=== PATIENT | male | born 1960 | race Native Hawaiian/Other Pacific Islander ===

== ENCOUNTER → 2018-10-30 08:25 | Outpatient (CLI) | payer BC | END | disposition home or self-care (01) | LOC: D.HCCARDIO 08:25 | PROVIDERS: ATTEND Internal Medicine Cardiovascular Disease | DX: I25.10 Atherosclerotic heart disease of native coronary artery without angina pectoris (principal); I10 Essential (primary) hypertension ==

== ENCOUNTER → 2018-11-12 14:22 | Outpatient (CLI) | payer BC ==
[~2018-11-12 14:22] MED LIST: ALBUTEROL SULF8.5 GM INH; BENICAR40 MG PO; BRILINTA90 MG PO; FENOFIBRATE160 MG PO; HCTZ25 MG PO; PREDNISONE50 MG PO; TOPROL XL100 MG PO
[2018-11-17 11:23] VITALS: BMI 30.1
== END | disposition home or self-care (01) ==
LOC: D.HCCARDIO 11-05 14:30
PROVIDERS: ATTEND Internal Medicine Cardiovascular Disease
DX: R06.02 Shortness of breath (principal)

== ENCOUNTER 2018-11-17 10:53 | Outpatient (CLI) | payer BC ==
[~2018-11-17] VITALS: Ht 177.8 cm; Wt 95.5 kg
--- NOTE | ~2018-11-17 | HEMODYNAMI ---
PATIENT:ANNE ENCARNACION JR MEDICAL RECORD: [id number] : 62 LOCATION:[facility] ADMISSION DATE: 11/17/18 Generatedon:11/17/201813:32 Patient name: ANNE ENCARNACION Patient #: [id number] SSN: D OB: 1960 Date of study: 11/17/2018 Page: Of Hemodynamic Procedure Report Patient Data Patient Demographics Procedure consent was obtained First Name: ANNE Gender: Male Last Name: ALYSHA Suffix: Patient #: [id number] : 1960 Age: 58 year(s) Accession #: Race: Other [id number] Additional ID: [id number] Contact details [address]: [address] [place] [address] State: [place] City: [place] Zip code: [address] Past Medical History Allergies Allergen Reaction Date Comments Reported Shellfish 11/17/2018 Admission Admission Data Admission Date: 11/17/2018 Admission Time: 10:53 Procedure Procedure Types Cath Procedure Diagnostic Procedure LHC LHC w/Coronaries PCI Procedure Coronary Stent Coronary Stent Initial Procedure Description Procedure Date Procedure Date: 11/17/2018 Procedure Start Time: 13:02 Procedure End Time: 13:28 Procedure Staff Name Function Alan Ambriz MD Performing Physician Jonathan Nelson RT Monitor Sheyla Weston RT Scrub Rebekah Toney RN Nurse Procedure Data Cath Procedure Fluoroscopy Diagnostic fluoroscopy Total fluoroscopy Time: 6.2 time: 6.2 min min Diagnostic fluoroscopy Total fluoroscopy dose: 840 dose: 840 mGy mGy Contrast Material Contrast Material Type Amount (ml) Isovue 300 111 Entry Location Entry Primary Successful Side Size Upsize Upsize Entry Closure Succes sful Closure Location (Fr) 1 (Fr) 2 (Fr) Remarks Device Remarks Femoral Right 5 Fr 6 Fr Exoseal artery Short Diagnostic catheters Device Type Used For End Catheter Placement MULTIPACK JL 4.0 5Fr Left Coronary catheter Angiography MULTIPACK 3DRC 5Fr Right Coronary catheter Angiography MULTIPACK Pigtail 5 Fr LV Angiography catheter Procedure Complications No complications Procedure Medications Medication Administration Route Dosage 0.9% NaCl I.V. 100 ml/hr Oxygen etCO2 Nasal cannula 2 l/min Lidocaine 2% added to field 20 Heparin Flush Bag added to field 2 bags (1000units/500ml NS) Versed I.V. 2 mg Fentanyl I.V. 50 mcg Versed I.V. 2 mg Fentanyl I.V. 50 mcg Heparin Bolus I.V. 9500 units Brilinta P.O. 180 mg Hemodynamics Rest Heart Rate: 86 (bpm) Pressure Samples Time Site Value (mmHg) Purpose Heart Use Rate(bpm) 13:10 LV 159/38,58 EDP 86 13:10 LV 148/7,45 Snapshot 122 Gradients Valve Time Site Site Mean SEP/DFP Peak To Heart Use 1 2 (mmHg) (sec/min) Peak Rate (mmHg) (bpm) Aortic 13:11 LV AO 87 Snapshots Pre Cath Intra NCS Post Cath Vital Signs Time Heart Resp SPO2 etCO2 NIBP (mmHg) Rhythm Pain Sedation Rate (ipm) (%) (mmHg) Status Level (bpm) 12:48:16 79 16 100 30.1 152/102(129) NSR 0 (11) 10(A) , No pain 12:52:38 89 17 97 29 129/98(116) NSR 0 (11) 10(A) , No pain 12:56:50 91 13 97 15 131/92(114) NSR 0 (11) 10(A) , No pain 13:01:04 88 16 99 33.8 138/104(133) NSR 0 (11) 10(A) , No pain 13:05:22 88 17 98 14.2 138/89(114) NSR 0 (11) 9(A) , No pain 13:09:38 88 19 97 18.8 154/104(121) NSR 0 (11) 9(A) , No pain 13:13:58 94 16 96 12.8 160/114(139) NSR 0 (11) 9(A) , No pain 13:18:24 99 14 96 36 148/105(127) NSR 0 (11) 9(A) , No pain 13:22:44 102 15 96 44.3 146/106(131) NSR 0 (11) 9(A) , No pain 13:26:58 103 15 96 47.4 152/104(129) NSR 0 (11) 10(A) , No pain Medications Time Medication Route Dose Verified Delivered Reason Notes Effectiveness by by 12:47:08 0.9% NaCl I.V. 100 Alan Rebekah used for ml/hr Pb Toney carpenter rough 12:47:14 Oxygen etCO2 2 Alan Rebekah used for Nasal l/min Pb Toney procedure cannula RN 12:47:19 Lidocaine 2% added 20ml Alan Alan for local to vial Pb Ambriz MD anesthetic field 12:47:24 Heparin Flush added 2 Alan Alan used for Bag to bags Pb Ambriz MD procedure (1000units/500ml field NS) 12:56:59 Versed I.V. 2 mg Alan Rebekah for sedation Pb Toney RN 12:57:05 Fentanyl I.V. 50 Alan Rebekah for sedation mcg Pb Toney RN 13:04:36 Versed I.V. 2 mg Alan Rebekah for sedation Pb Toney RN 13:04:40 Fentanyl I.V. 50 Alan Rebekah for sedation mcg Pb Toney RN 13:15:43 Heparin Bolus I.V. 9500 Alan Rebekah for verif ied units Pb Toney anticoagulation with Dr. FREDO Ambriz 13:29:41 Brilinta P.O. 180 Alan Rebekah for mg Pb Toney antiplatelet RN therapy Procedure Log Time Note 12:24:30 Informed consent obtained and on chart 12:24:35 Diagnostic Cath Status : Elective 12:38:56 Sheyla Weston RT(R) sent for patient. Start room use. 12:38:57 Time tracking: Regular hours (M-F 7:00 - 5:00) 12:39:01 Plan of Care:Hemodynamics will remain stable., Cardiac rhythm will remain stable., Comfort level will be maintained., Respiratory function will remain adequate., Patient/ family verbilizes understanding of procedure., Procedure tolerated without complication., Recovers from procedure without complications.. 12:41:10 Patient received from Pre/Post Procedure Room to CCL 1 Alert and oriented. Tansferred to table in Supine position. 12:41:12 Warm blankets applied, and deepa hugger turned on for patient comfort. 12:41:12 Correct patient and procedure confirmed by team. 12:41:13 ECG and BP/O2 sat monitors applied to patient. 12:46:58 Vital chart was started 12:47:08 0.9% NaCl 100 ml/hr I.V. was administered by Rebekah Toney RN; used for procedure; 12:47:14 Oxygen 2 l/min etCO2 Nasal cannula was administered by Rebekah Toney RN; used for procedure; 12:47:19 Lidocaine 2% 20ml vial added to field was administered by Alan Ambriz MD; for local anesthetic; 12:47:24 Heparin Flush Bag (1000units/500ml NS) 2 bags added to field was administered by Alan Ambriz MD; used for procedure; 12:53:27 ECG and BP/O2 sat monitors applied to patient. 12:53:28 Baseline sample Acquired. 12:53:31 Rhythm: sinus rhythm 12:53:32 Full Disclosure recording started 12:53:48 H&P Date Dictated: 10/30/2018 Within 30 days and on chart., H&P Addendum completed by physician on day of procedure. (MUST COMPLETE FOR ALL OUTPATIENTS). 12:53:49 Pre-procedure instructions explained to patient. 12:53:50 Pre-op teaching completed and patient verbalized understanding. 12:53:55 Family in patients room. 12:53:57 Patient NPO since Midnight. 12:54:48 Patient allergic to Shellfish 12:54:51 Is the patient allergic to Iodine/contrast media? No. 12:54:56 Is patient on blood thinner?Yes 12:55:01 Patient diabetic? No. 12:55:04 If diabetic: On Metformin? No 12:55:05 ----Pre-sedation anethsthesia assessment.---- 12:55:09 Previous problem with sedation/anesthesia? No ? 12:55:11 Snore? Yes 12:55:13 Sleep apnea? No 12:55:15 Deviated septum? No 12:55:17 Opens mouth fully? Yes 12:55:18 Sticks out tongue? Yes 12:55:23 Airway obstruction? No ? 12:55:29 Dentures? No ? 12:55:35 Pre procedure: right dorsailis pedis pulse 1+ Palpable, but thready & weak; easily obliterated 12:55:38 Patient pain scale 0/10 ?. 12:55:42 IV patent on arrival in left antecubital with 0.9% NaCl at 10ml/hr. 12:55:45 Lab results completed and on chart. 12:55:49 Right groin area was prepped with chlora-prep and draped in sterile fashion 12:55:50 Alarms reviewed by R. N. 12:55:50 Sharps counted by scrub and verified by R.N. 12:55:51 Physician arrived 12:55:52 --------ALL STOP TIME OUT------ 12:55:52 Final Timeout: patient, procedure, and site verified with staff and physician. All members of the team are in agreement. 12:55:56 Right groin site verified by team. 12:55:59 Maximum allowable Isovue 300 dose 300ml. Physician notified. (300ml for normal creatinines. For patients with creatinine of 1.7 or higher multiply weight(kg) x 5 divided by creatinine.) 12:56:02 Fire Safety Assessment: A--An alcohol-based skin anteseptic being used preoperatively., C--Open oxygen or nitrous oxide is being used., D--An ESU, laser, or fiber-optic light is being used. 12:56:05 Physical assessment completed. ASA score P 2 - A patient with mild systemic disease as per Alan Ambriz MD. 12:56:08 Sedation plan: IV Moderate Sedation Medication:Versed, Fentanyl 12:56:59 Versed 2 mg I.V. was administered by Rebekah Toney RN; for sedation; 12:57:05 Fentanyl 50 mcg I.V. was administered by Rebekah Toney RN; for sedation; 12:58:53 Use device set Femoral Dx 12:58:54 ACIST Syringe (06647) opened to sterile field. 12:58:54 Bag Decanter (2002S) opened to sterile field. 12:58:54 Medline Cath Pack ([id number]) opened to sterile field. 12:58:55 DIAGNOSTIC WIRE .035 260cm J wire (718672) opened to sterile field. 12:58:57 ACIST Hand Control (02005) opened to sterile field. 12:58:57 ACIST Manifold (02434) opened to sterile field. 12:58:57 DIAGNOSTIC Multipack 5Fr catheter set (FT0467) opened to sterile field. 12:58:59 Tegaderm 4 x 4 (1626W) opened to sterile field. 12:59:01 SHEATH 5FR Sparta (XZF200) opened to sterile field. 13:02:10 Procedure started. 13:02:23 Local anesthetic to right femoral artery with Lidocaine 2% by Alan Ambriz MD.INITIAL ACCESS ONLY 13:02:38 A 5 Fr sheath was inserted into the Right Femoral artery 13:02:57 Zero performed for pressure channel P1 13:04:26 A MULTIPACK JL 4.0 5Fr catheter was advanced over the wire and used for Left Coronary Angiography. 13:04:30 LCA angiography performed. 13:04:36 Versed 2 mg I.V. was administered by Rebekah Toney RN; for sedation; 13:04:40 Fentanyl 50 mcg I.V. was administered by Rebekah Toney RN; for sedation; 13:05:33 Catheter exchanged over wire. 13:06:50 A MULTIPACK 3DRC 5Fr catheter was advanced over the wire and used for Right Coronary Angiography. 13:06:54 RCA angiography performed. 13:09:07 Catheter exchanged over wire. 13:09:14 A MULTIPACK Pigtail 5 Fr catheter was advanced over the wire and used for LV Angiography. 13:10:29 LV gram done using STRINGER 13:10:38 EF : 35 % 13:11:01 Catheter exchanged over wire. 13:13:05 Sheath upsized to a 6 Fr Short. 13:14:14 GUIDE 6FR XBLAD 3.5 catheter ([id number]) opened to sterile field. 13:14:15 TUBING High Pressure Extension Tubing (Pb) (NY0872I) opened to sterile field. 13:14:16 BMW 300cm Bridport 2 J wire ([id number]) opened to sterile field. 13:14:16 SHEATH 6FR Sparta (BMQ824) opened to sterile field. 13:14:17 INFLATOR Merit BasixCompak (KC9587) opened to sterile field. 13:14:27 6 Fr XBLAD 3.5 guide catheter was inserted over the wire 13:14:34 BMW wire advanced. 13:15:43 Heparin Bolus 9500 units I.V. was administered by Rebekah Toney RN; for anticoagulation; verified with Dr. Ambriz 13:19:10 Inflate balloon Inflation number: 1 A EMERGE OTW 2.5 x 20 balloon ([id number]) was prepped and advanced across the Mid LAD, then inflated to 16 VALDEMAR for 0:10 (min:sec). 13:20:00 Inflation number: 2 The EMERGE OTW 2.5 x 20 balloon ([id number]) was reinflated across the Mid LAD, to 16 VALDEMAR for 0:12 (min:sec). 13::47 Balloon removed over the wire. 13:25:17 Place stent Inflation Number: 3 A BORIS OTW 3.0 x 26 stent ([id number]) was prepped and advanced across the Mid LAD. The stent was deployed at 15 VALDEMAR for 0:38 (min:sec). 13:26:28 EXOSEAL 6Fr (EX600) opened to sterile field. 13:26:38 Stent catheter was removed intact over wire. 13:26:38 Wire removed. 13:26:39 Guide catheter removed. 13::46 Contrast amount:Isovue 300 111ml. 13:26:52 Sheath removed intact; hemostasis achieved with Exoseal to the Right Femoral artery. 13:26:54 Procedure ended.(Physican Out) 13:27:09 Fluoroscopy time 06.20 minutes. 13:27:15 Fluoroscopy dose: 840 mGy 13:27:15 Flurop Dose total: 840 13:27:19 Sharps counted by scrub and verified by R.N. 13:27:21 Insertion/operative site no bleeding no hematoma. 13:27:27 Post-op/insertion site Right Femoral artery dressed using a 4 x 4 and Tegaderm. 13:27:31 Post right femoral artery:stable 13:27:33 Post Procedure Pulses reassessed and unchanged 13:27:37 Post procedure: right dorsailis pedis pulse 2+ Normal; easily identifiable; not easily obliterated. 13:27:41 Post-procedure physical assessment completed. ASA score P 2 - A patient with mild systemic disease as per Alan Ambriz MD. 13:27:44 Post procedure rhythm: sinus rhythm 13:27:46 Post procedure instruction explained to patient.Patient verbalizes understanding. 13::47 Procedure and supply charges have been captured, reviewed, submitted and are correct. 13::53 Procedure Complication : No complications 13::57 Vital chart was stopped 13:27:57 See physician's report for complete and final results. 13:27:59 Report given to Pre/Post Procedure Room. 13:28:06 Patient transfered to Pre/Post Procedure Room with Bed. 13:28:09 Procedure ended. 13:28:09 Full Disclosure recording stopped 13:28:37 ACC-PCI Only Patient was given prescriptions, or instructed by Alan Ambriz MD to start/continue the following medications upon discharge: Brilinta 13:28:39 End room use (Document Last) 13:28:54 Procedure type changed to Cath procedure, Diagnostic procedure, LHC, LHC w/Coronaries, PCI procedure, Coronary Stent, Coronary Stent Initial 13:29:41 Brilinta 180 mg P.O. was administered by Rebekah Toney RN; for antiplatelet therapy; Intervention Summary Intervention Notes Time ActionType Lesion and Equipment Action# Pressure Duration Attributes Used 13:19:10 Inflate Mid LAD EMERGE OTW 1 16 00:10 balloon 2.5 x 20 balloon ([id number]) 13:20:00 Reinflate Mid LAD EMERGE OTW 2 16 00:12 balloon 2.5 x 20 balloon ([id number]) 13:25:17 Place stent Mid LAD BORIS OTW 3.0 3 15 00:38 x 26 stent ([id number]) Device Usage Item Name Manufacture Quantity Catalog Number Hospital Part Current M inimal Lot# / Charge Number Stock Stock Serial# Code ACIST Syringe Acist 1 17165 425995 782235 979666 2 0 (98275) Medical Systems Inc Bag Decanter Microtek 1 236811 58714 915408 5 () Medical Inc. Medline Cath Medline 1 [id number] 213266 67807 921126 5 Pack ([id number]) DIAGNOSTIC St Augusto 1 049286 706639 863027 942058 3 0 WIRE .035 260cm J wire (968720) ACIST Hand Acist 1 61417 356800 781457 502983 5 Control Medical (62167) Systems Inc ACIST Acist 1 33085 880562 581943 941225 5 Manifold Medical (13907) Systems Inc DIAGNOSTIC Cardinal 1 [id number] 178957 20364 726426 3 0 Multipack 5Fr Health catheter set (IZ5923) Tegaderm 4 x 3M 1 1626W 989401 114723 480399 5 4 (1626W) SHEATH 5FR Terumo 1 QWR835 824234 050352 425307 5 Sparta (JJS561) MULTIPACK JL Cardinal 1 988066 5 4.0 5Fr Health catheter MULTIPACK Cardinal 1 995021 5 3DRC 5Fr Health catheter MULTIPACK Cardinal 1 961572 5 Pigtail 5 Fr Health catheter GUIDE 6FR Cardinal 1 [id number] 067168 843478 390951 1 0 XBLAD 3.5 Health catheter ([id number]) TUBING High Merit 1 [id number] 622426 92504 487813 1 0 Pressure Medical Extension Tubing (Ambriz) (PS6774S) BMW 300cm Recinos 1 [id number] 198177 159741 444836 5 Bridport 2 J Vascular wire (2452945T) SHEATH 6FR Terumo 1 QDL517 903727 474090 225440 4 0 Sparta (ZFF622) INFLATOR Merit 1 JE4909 444178 547926 175870 1 5 [facility] Medical BasixCompak (FL0299) EMERGE OTW Crandall 1 [id number] 331035 045278 828034 5 [id number] 2.5 x 20 Scientific balloon ([id number]) BORIS OTW 3.0 Medtronic 1 [id number] 286490 7737829 499419 5 [id number] x 26 stent ([id number]) EXOSEAL 6Fr Cardinal 1 EX600 139634 050885 728125 1 0 (EX600) Health Signature Audit Morton Stage Time Signature Unsigned Intra-Procedure 11/17/2018 Jonathan Nelson RT(R) 1:32:29 PM Signatures Monitor : Jonathan Nelson RT Signature : Date : Time : [facility] [address] [place] [address]
[2018-11-17] MEDS ORDERED: TOPROL XL100 MG PO (11:05)
[2018-11-17] MEDS ORDERED: PREDNISONE50 MG PO (11:05)
[2018-11-17] MEDS ORDERED: FENOFIBRATE160 MG PO (11:05)
[2018-11-17] MEDS ORDERED: HCTZ25 MG PO (11:06)
[2018-11-17] MEDS ORDERED: ALBUTEROL SULF8.5 GM INH (11:06)
[2018-11-17] MEDS ORDERED: BENICAR40 MG PO (11:06)
[2018-11-17 11:23] VITALS: BP 143/98; Ht 177.8 cm; Wt 95.5 kg
[2018-11-17 11:25] LABS: BASOPHILS 0.1 % (0-2); EOSINOPHILS 0.1 % (0-7); HEMATOCRIT 44.7 % (42.0-54.0); HEMOGLOBIN 15.4 g/dL (13.5-17.5); IMMATURE GRANULOCYTES 0.3 % (0-5); LYMPHOCYTES 12.7 % (15-50); MCH 30.3 pg (26.0-34.0); MCHC 34.5 g/dL (31.0-37.0); MEAN PLATELET VOLUME 11.4 fL (7.4-10.4); MONOCYTES 2.6 % (2-11); NEUTROPHILS 84.2 % (40-80); PLATELET COUNT 228 10x3/uL (130-400); RBC 5.08 10x6/uL (4.20-6.10); RDW 13.9 % (11.5-14.5); WBC 7.7 10x3/uL (4.8-10.8)
[2018-11-17 11:37] LABS: ANION GAP 13.9 mmol/L (8-16); CALCIUM 9.5 mg/dL (8.5-10.1); CARBON DIOXIDE 26.8 mmol/L (21.0-32.0); CREATININE - SERUM 1.3 mg/dL (0.6-1.3); POTASSIUM - SERUM 4.7 mmol/L (3.5-5.1)
[2018-11-17] MEDS ORDERED: BRILINTA90 MG PO (13:48)
--- NOTE | 2018-11-17 14:00 | NUR ---
PATIENT INTERMITTENTLY RESTING, VSS ON 2L NC. RIGHT GROIN DRESSING IS CDI, NO S/S OF BLEEDING OR HEMATOMA. NO C/O PAIN, NUMBNESS, OR TINGLING. PATIENT EATING JELLO AND DRINKING SODA PER REQUEST, NO N/V.
--- NOTE | 2018-11-17 14:30 | NUR ---
PATIENT AWAKE, RESTING INTERMITTENTLY. VSS ON 2L NC. RIGHT GROIN DRESSING IS CDI, NO S/S OF BLEEDING OR HEMATOMA. NO C/O PAIN, NUMBNESS, OR TINGLING. 2+ PEDAL PULSES.
--- NOTE | 2018-11-17 15:00 | NUR ---
PATIENT RESTING, VSS ON 2L NC. RIGHT GROIN DRESSING IS CDI, NO S/S OF BLEEDING OR HEMATOMA. NO C/O PAIN, NUMBNESS, OR TINGLING.
--- NOTE | 2018-11-17 15:30 | NUR ---
PATIENT RESTING, VSS ON 2L NC. RIGHT GROIN DRESSING IS CDI, NO S/S OF BLEEDING OR HEMATOMA. NO C/O PAIN, NUMBNESS, OR TINGLING. FAMILY AT BEDSIDE.
--- NOTE | 2018-11-17 16:00 | NUR ---
PATIENT RESTING, VSS ON 1L NC. RIGHT GROIN DRESSING IS CDI, NO S/S OF BLEEDING OR HEMATOMA. FAMILY AT BEDSIDE.
--- NOTE | 2018-11-17 16:30 | NUR ---
HEAD OF BED ELEVATED TO 30 DEGREES, RIGHT GROIN DRESSING IS CDI, NO S/S OF BLEEDING OR HEMATOMA. NO C/O PAIN, NUMBNESS, OR TINGLING. VSS ON 1L NC.
--- NOTE | 2018-11-17 17:00 | NUR ---
IV REMOVED. EDUCATION REGARDING DISCHARGE INSTRUCTIONS AND MEDICATION COMPLIANCE GIVEN TO PATIENT AND SIGNIFICANT OTHER, PATIENT VOICED UNDERSTANDING. VSS ON ROOM AIR. RIGHT GROIN DRESSING IS CDI, NO S/S OF BLEEDING OR HEMATOMA. NO C/O PAIN, NUMBNESS, OR TINGLING. NO N/V.
--- NOTE | 2018-11-17 17:30 | NUR ---
PATIENT VOIDED WITHOUT DIFFICULTY. PATIENT TRANSPORTED VIA WHEELCHAIR TO CAR WITH SIGNIFICANT OTHER DRIVING, ALL BELONGINGS WITH PATIENT.
== END 2018-11-17 17:30 ==
LOC: D.CATH 10:53
PROVIDERS: ATTEND Internal Medicine Cardiovascular Disease
DX: I25.119 Atherosclerotic heart disease of native coronary artery with unspecified angina pectoris (principal); Z01.812 Encounter for preprocedural laboratory examination
CPT/HCPCS: 93458; C9600

== ENCOUNTER 2018-11-20 06:57 | Inpatient (IN) | payer BC ==
[~2018-11-20] VITALS: Ht 177.8 cm; Wt 95.9 kg
[2018-11-20] VITALS (17 sets, daily range): BP systolic 114–160; BP diastolic 76–100; Ht 177.8 cm; Wt 95.9 kg
--- NOTE | ~2018-11-20 | DS ---
PATIENT:ANNE KEYES JR :62 MEDICAL RECORD: [id number] DISCHARGE SUMMARY ADMISSION DATE: 11/20/18 DISCHARGE DATE: 11/22/18 DISCHARGE DIAGNOSES: 1. Acute anterior myocardial infarction. 2. PTCA and stent of LAD. 3. Hypertension. 4. Hyperlipidemia. HOSPITAL COURSE: Mr. Keyes presents with acute chest pain, found to have acute clot in the preexisting stents. Underwent restenting of the LAD with BORIS 3 flow. Discharged home with no change in the medications as he is already on a beta-mikaela, cholesterol medication, aspirin, and Brilinta. He will follow up with Dr. Ambriz in 1 month. TRANSINT:[id number] Voice Confirmation ID: [id number] DOCUMENT ID: [id number] SYLVAIN LUEVANO MD CC: [id number] DICTATION DATE: 11/22/1859 GENERAL CAR SUPERVISOR YARD: 11/23/18 0539 DIS IN 11/22/18 [facility] [address] [place] [address]
--- NOTE | ~2018-11-20 | HEMODYNAMI ---
PATIENT:ANNE ENCARNACION JR MEDICAL RECORD: [id number] : 62 LOCATION:[facility] ADMISSION DATE: 11/20/18 Generatedon:11/20/20188:03 Patient name: ANNE ENCARNACION Patient #: [id number] SSN: D OB: 1960 Date of study: 11/20/2018 Page: Of Hemodynamic Procedure Report Patient Data Patient Demographics Procedure consent was obtained First Name: ANNE Gender: Male Last Name: ALYSHA Suffix: Patient #: [id number] : 1960 Age: 58 year(s) Accession #: Race: Other [id number] Additional ID: [id number] Contact details [address]: [address] [place] [address] State: [place] City: [place] Zip code: [address] Past Medical History Allergies Allergen Reaction Date Comments Reported Shellfish 11/17/2018 Admission Admission Data Admission Date: 11/20/2018 Admission Time: 6:57 Procedure Procedure Types Cath Procedure Diagnostic Procedure LHC LH w/Coronaries Sedation Charges Moderate Sedation up to 15 minutes PCI Procedure AMI/SVG/COMPUTER GRAPHICS ILLUSTRATOR PTCA or Stent AMI-BMS/TRISTAN Initial Procedure Description Procedure Date Procedure Date: 11/20/2018 Procedure Start Time: 7:33 Procedure End Time: 7:58 Procedure Staff Name Function Alan Ambriz MD Performing Physician Raymundo Klein RT Monitor Sheyla Weston RT Scrub Rebekah Toney RN Nurse Procedure Data Cath Procedure Fluoroscopy Diagnostic fluoroscopy Total fluoroscopy Time: 5.4 time: 5.4 min min Diagnostic fluoroscopy Total fluoroscopy dose: 546 dose: 546 mGy mGy Contrast Material Contrast Material Type Amount (ml) Isovue 300 76 Entry Location Entry Primary Successful Side Size Upsize Upsize Entry Closure Succes sful Closure Location (Fr) 1 (Fr) 2 (Fr) Remarks Device Remarks Femoral Right 6 Fr Exoseal artery Short Estimated blood loss: 10 ml Diagnostic catheters Device Type Used For End Catheter Placement MULTIPACK JL 4.0 5Fr Procedure catheter MULTIPACK Pigtail 5 Fr Procedure catheter Procedure Complications No complications Procedure Medications Medication Administration Route Dosage Benadryl I.V. 50 mg Oxygen etCO2 Nasal cannula 2 l/min Lidocaine 2% added to field 20 Heparin Flush Bag added to field 2 bags (1000units/500ml NS) 0.9% NaCl I.V. 100 ml/hr Versed I.V. 2 mg Fentanyl I.V. 50 mcg Versed I.V. 1 mg Fentanyl I.V. 25 mcg Heparin Bolus I.V. 9500 units Integrilin (Bolus I.V. 8.5 ml 2mg/ml) Integrilin Drip I.V. drip 7.5 ml/hr (75mg/100ml) Brilinta P.O. 90 mg Hemodynamics Rest Heart Rate: 96 (bpm) Pressure Samples Time Site Value (mmHg) Purpose Heart Use Rate(bpm) 7:52 LV 161/39,54 Snapshot 93 Gradients Valve Time Site Site Mean SEP/DFP Peak To Heart Use 1 2 (mmHg) (sec/min) Peak Rate (mmHg) (bpm) Aortic 7:52 LV AO 87 Snapshots Pre Cath Intra NCS Post Cath Vital Signs Time Heart Resp SPO2 etCO2 NIBP (mmHg) Rhythm Pain Sedation Rate (ipm) (%) (mmHg) Status Level (bpm) 7:22:42 86 15 98 38.4 127/90(104) NSR w/ ST 8 (11) , 10(A) Elevation Utterly horrible 7:27:00 89 15 97 29.4 146/104(130) NSR w/ ST 8 (11) , 10(A) Elevation Utterly horrible 7:31:26 103 15 98 22.6 158/101(134) NSR w/ ST 8 (11) , 10(A) Elevation Utterly horrible 7:37:00 108 17 98 21.8 148/96(142) NSR w/ ST 0 (11) , 9(A) Elevation No pain 7:41:14 109 19 97 35.4 134/98(129) NSR w/ ST 0 (11) , 9(A) Elevation No pain 7:45:38 104 16 96 40.7 139/89(108) ST 0 (11) , 9(A) No pain 7:50:00 103 20 100 41.5 139/119(131) ST 0 (11) , 9(A) No pain 7:54:26 106 16 100 45.2 150/85(106) ST 0 (11) , 10(A) No pain 7:58:47 99 36 100 14.3 133/93(114) NSR 0 (11) , 10(A) No pain Medications Time Medication Route Dose Verified Delivered Reason Notes Effectiveness by by 7:21:23 Benadryl I.V. 50 mg Alan Alan used for Pb Ambriz MD procedure 7:21:36 Oxygen etCO2 2 Alan Rebekah used for Nasal l/min Pb Toney procedure cannula RN 7:21:44 Lidocaine 2% added 20ml Alan Alan for local to vial Pb Ambriz MD anesthetic field 7:21:52 Heparin Flush added 2 Alan Alan used for Bag to bags Pb Ambriz MD procedure (1000units/500ml field NS) 7:22:00 0.9% NaCl I.V. 100 Alan Alan Per physician ml/hr Pb Ambriz MD 7:28:59 Versed I.V. 2 mg Alan Rebekah for sedation Pb Toney RN 7:29:03 Fentanyl I.V. 50 Alan Rebekah for sedation mcg Pb Toney RN 7:35:09 Versed I.V. 1 mg Alan Rebekah for sedation Pb Toney RN 7:35:13 Heparin Bolus I.V. 9500 Alan Rebekah for verifi ed units Pb Toney anticoagulation with DrJose Ambriz 7:35:13 Fentanyl I.V. 25 Alan Rebekah for sedation mcg Pb Toney RN 7:50:42 Integrilin I.V. 8.5 Alan Rebekah for wasted (Bolus 2mg/ml) ml Pb Toney antiplatelet 1.5mL RN therapy 7:55:04 Integrilin Drip I.V. 7.5 Alan Rebekah for (75mg/100ml) drip ml/hr Pb Toney antiplatelet RN therapy 7:56:31 Brilinta P.O. 90 mg Alan Rebekah for Pb Toney antiplatelet RN therapy Procedure Log Time Note 7:19:08 Diagnostic Cath Status : Emergency 7:19:22 Raymundo Klein RT(R) sent for patient. Start room use. 7:19:23 Time tracking: Regular hours (M-F 7:00 - 5:00) 7:19:27 Plan of Care:Hemodynamics will remain stable., Cardiac rhythm will remain stable., Comfort level will be maintained., Respiratory function will remain adequate., Patient/ family verbilizes understanding of procedure., Procedure tolerated without complication., Recovers from procedure without complications.. 7:19:32 Patient received from ED to CCL 1 Alert and oriented. Tansferred to table in Supine position. 7:19:34 Warm blankets applied, and deepa hugger turned on for patient comfort. 7:19:34 Correct patient and procedure confirmed by team. 7:19:35 Signed procedure consent form obtained from patient. 7:19:36 ECG and BP/O2 sat monitors applied to patient. 7:21:23 Benadryl 50 mg I.V. was administered by Alan Ambriz MD; used for procedure; 7:21:30 Vital chart was started 7:21:36 Oxygen 2 l/min etCO2 Nasal cannula was administered by Rebekah Toney RN; used for procedure; 7:21:44 Lidocaine 2% 20ml vial added to field was administered by Alan Ambriz MD; for local anesthetic; 7:21:52 Heparin Flush Bag (1000units/500ml NS) 2 bags added to field was administered by Alan Ambriz MD; used for procedure; 7:21:56 Full Disclosure recording started 7:22:00 0.9% NaCl 100 ml/hr I.V. was administered by Alan Ambriz MD; Per physician; 7:22:01 Rhythm: sinus rhythm , w/ ST elevation 7:22:14 H&P Date Dictated: 11/20/2018 ER History on chart.. 7::22 H&P Date Dictated: 11/20/2018 ER History on chart., New H&P dictated by physician.. 7:22:23 Pre-procedure instructions explained to patient. 7:22:24 Pre-op teaching completed and patient verbalized understanding. 7:22:26 Family in waiting room. 7:22:28 Patient NPO since Midnight. 7:23:01 Is the patient allergic to Iodine/contrast media? No. 7:23:04 Was the patient premedicated? No 7:23:10 Is patient on blood thinner?Yes 7:23:14 ACC The patient was administered the following blood thiners within the last 24 hours: ACCBrilinta 7:23:16 Patient diabetic? No. 7:23:21 Previous problem with sedation/anesthesia? No ? 7:23:23 Snore? Yes 7:23:24 Sleep apnea? Yes 7:23:25 Deviated septum? No 7:23:36 Opens mouth fully? Yes 7:23:36 Sticks out tongue? Yes 7:23:38 Airway obstruction? No ? 7:23:41 Dentures? No ? 7:23:45 Pre procedure: left dorsailis pedis pulse 2+ Normal; easily identifiable; not easily obliterated 7:23:53 Patient pain scale 0/10 ?. 7:24:00 IV patent on arrival in left antecubital with 0.9% NaCl at [facility]. 7:24:02 Lab results completed and on chart. 7:24:05 Left groin area was prepped with chlora-prep and draped in sterile fashion 7:24:06 Alarms reviewed by R. N. 7:24:07 Sharps counted by scrub and verified by R.N. 7:24:18 Use device set Femoral Dx 7:24:22 SHEATH 6FR [place] ([id number]) opened to sterile field. 7:24:25 ACIST Syringe (57125) opened to sterile field. 7:24:25 Bag Decanter (2002S) opened to sterile field. 7:24:26 Medline Cath Pack ([id number]) opened to sterile field. 7:24:27 DIAGNOSTIC WIRE .035 260cm J wire (366831) opened to sterile field. 7:24:28 ACIST Hand Control (68424) opened to sterile field. 7:24:28 ACIST Manifold (11255) opened to sterile field. 7:24:29 DIAGNOSTIC Multipack 5Fr catheter set (MW6786) opened to sterile field. 7:24:29 Tegaderm 4 x 4 (1626W) opened to sterile field. 7:24:31 TUBING High Pressure Extension Tubing (Ambriz) ([id number]) opened to sterile field. 7:24:32 INFLATOR Merit BasixCompak (XC0162) opened to sterile field. 7:24:35 BMW 300cm [place] 2 J wire ([id number]) opened to sterile field. 7:25:15 Physician arrived 7::15 --------ALL STOP TIME OUT------ 7::15 Final Timeout: patient, procedure, and site verified with staff and physician. All members of the team are in agreement. 7:25:16 Left groin site verified by team. 7:25:19 Maximum allowable Isovue 300 dose 300ml. Physician notified. (300ml for normal creatinines. For patients with creatinine of 1.7 or higher multiply weight(kg) x 5 divided by creatinine.) 7:25:24 Fire Safety Assessment: A--An alcohol-based skin anteseptic being used preoperatively., C--Open oxygen or nitrous oxide is being used., D--An ESU, laser, or fiber-optic light is being used. 7:25:27 Physical assessment completed. ASA score P 3 - A patient with severe systemic disease as per Alan Ambriz MD. 7:25:30 Sedation plan: IV Moderate Sedation Medication:Versed, Fentanyl 7:26:45 Baseline sample Acquired. 7::53 Baseline sample Acquired. 7:28:59 Versed 2 mg I.V. was administered by Rebekah Toney RN; for sedation; 7:29:03 Fentanyl 50 mcg I.V. was administered by Rebekah Toney RN; for sedation; 7:32:20 Zero performed for pressure channel P1 7:32:24 Zero performed for pressure channel P1 7:32:26 Zero performed for pressure channel P1 7:32:28 Zero performed for pressure channel P1 7:32:49 Zero performed for pressure channel P1 7:32:51 Zero performed for pressure channel P1 7:32:54 Zero performed for pressure channel P1 7:32:57 Zero performed for pressure channel P1 7:33:00 Zero performed for pressure channel P1 7:33:03 Zero performed for pressure channel P1 7:33:22 Procedure started. 7:33:25 Local anesthetic to left femerol artery with Lidocaine 2% by Alan Ambriz MD.INITIAL ACCESS ONLY 7:33:33 A 6 Fr Short sheath was inserted into the Right Femoral artery 7:33:40 A MULTIPACK JL 4.0 5Fr catheter was advanced over the wire and used for Procedure. 7:33:56 Zero performed for pressure channel P1 7:33:59 Zero performed for pressure channel P1 7:34:01 Zero performed for pressure channel P1 7:34:29 Zero performed for pressure channel P1 7:34:32 Zero performed for pressure channel P1 7:35:01 LCA angiography performed. 7:35:04 Catheter exchanged over wire. 7:35:09 Versed 1 mg I.V. was administered by Rebekah Toney RN; for sedation; 7:35:12 GUIDE 6FR XBLAD 3.5 catheter ([id number]) opened to sterile field. 7:35:13 Heparin Bolus 9500 units I.V. was administered by Rebekah Toney RN; for anticoagulation; verified with Dr. Ambriz 7:35:13 Fentanyl 25 mcg I.V. was administered by Rebekah Toney RN; for sedation; 7:35:21 6 Fr xblad 3.5 guide catheter was inserted over the wire 7:36:41 BMW wire advanced. 7:38:41 Wire advanced across lesion. 7:40:23 Inflate balloon Inflation number: 1 A EMERGE OTW 2.5 x 20 balloon ([id number]) was prepped and advanced across the Prox LAD, then inflated to 16 VALDEMAR for 0:10 (min:sec). 7:42:23 Inflation number: 2 The EMERGE OTW 2.5 x 20 balloon ([id number]) was reinflated across the Prox LAD, to 10 VALDEMAR for 0:10 (min:sec). 7:46:20 Balloon removed over the wire. 7:47:26 Place stent Inflation Number: 3 A Mocapaytronic Integrity 2.75 X 12 stent was prepped and advanced across the Prox LAD. The stent was deployed at 12 VALDEMAR for 0:10 (min:sec). 7:48:00 Inflation number: 4 The stent balloon was then re-inflated across the Prox LAD to 14 VALDEMAR for 0:10 (min:sec). 7:50:03 Stent catheter was removed intact over wire. 7:50:03 Wire removed. 7:50:04 Guide catheter removed. 7:50:12 A MULTIPACK Pigtail 5 Fr catheter was advanced over the wire and used for Procedure. 7:50:42 Integrilin (Bolus 2mg/ml) 8.5 ml I.V. was administered by Rebekah Toney RN; for antiplatelet therapy; wasted 1.5mL 7:52:15 LV gram done using STRINGER 7:52:18 Injector settings: Ml/sec: 10, Volume: 20, 7:52:19 LV hemodynamics recorded. 7:52:29 EF : 45 % 7:53:48 Catheter removed. 7:53:56 Sheath removed intact; hemostasis achieved with Exoseal to the Right Femoral artery. 7:53:58 Procedure ended.(Physican Out) 7:55:04 Integrilin Drip (75mg/100ml) 7.5 ml/hr I.V. drip was administered by Rebekah Toney RN; for antiplatelet therapy; 7:55:49 Fluoroscopy time 05.40 minutes. 7:55:53 Flurop Dose total: 546 7:55:53 Fluoroscopy dose: 546 mGy 7:56:03 Contrast amount:Isovue 300 76ml. 7:56:09 Sharps counted by scrub and verified by R.N. 7:56:11 Insertion/operative site no bleeding no hematoma. 7:56:15 Post-op/insertion site Left Femoral artery dressed using a 4 x 4 and Tegaderm. 7:56:22 Post left femerol artery:stable, soft, clean and dry 7:56:27 Post Procedure Pulses reassessed and unchanged 7:56:31 Brilinta 90 mg P.O. was administered by Rebekah Toney RN; for antiplatelet therapy; 7:56:36 Post-procedure physical assessment completed. ASA score P 3 - A patient with severe systemic disease as per Alan Ambriz MD. 7:56:42 Post procedure rhythm: sinus tachycardia 7:56:48 Estimated blood loss: 10 ml 7:56:49 Post procedure instruction explained to patient.Patient verbalizes understanding. 7:56:50 Patient needs reinforcement of post procedure teaching. 7:57:13 Procedure type changed to Cath procedure, Diagnostic procedure, LHC, LHC w/Coronaries, Sedation Charges, Moderate Sedation up to 15 minutes, PCI procedure, AMI/SVG/COMPUTER GRAPHICS ILLUSTRATOR PTCA or Stent, AMI-BMS/TRISTAN Initial 7:58:19 EXOSEAL 6Fr (EX600) opened to sterile field. 7:58:38 Procedure and supply charges have been captured, reviewed, submitted and are correct. 7:58:40 Procedure Complication : No complications 7:58:42 Vital chart was stopped 7:58:43 See physician's report for complete and final results. 7:58:45 Report given to ICU. 7:58:47 Patient transfered to ICU with Stretcher. 7:58:50 Procedure ended. 7:58:50 Full Disclosure recording stopped 7:58:58 End room use (Document Last) Intervention Summary Intervention Notes Time ActionType Lesion and Equipment Action# Pressure Duration Attributes Used 7:40:23 Inflate Prox LAD EMERGE OTW 1 16 00:10 balloon 2.5 x 20 balloon ([id number]) 7:42:23 Reinflate Prox LAD EMERGE OTW 2 10 00:10 balloon 2.5 x 20 balloon ([id number]) 7:47:26 Place stent Prox LAD Medtronic 3 12 00:10 Integrity 2.75 X 12 stent 7:48:00 Reinflate Prox LAD Medtronic 4 14 00:10 stent Integrity balloon 2.75 X 12 stent Device Usage Item Name Manufacture Quantity Catalog Number Hospital Part Current Min imal Lot# / Charge Number Stock Stock Serial# Code SHEATH 6FR Terumo 1 [id number] 006600 [id number] 40 [place] (HWU701) ACIST Acist 1 28154 801550 065036 612331 20 Syringe Medical (80025) Systems Inc Bag Decanter Microtek 1 2001S 695707 05411 193160 5 (2001S) Medical Inc. Medline Cath Medline 1 [id number] 319245 31473 601378 5 Pack ([id number]) DIAGNOSTIC St [place] 1 996230 615994 791735 388208 30 WIRE .035 260cm J wire (674431) ACIST Hand Acist 1 81186 489038 289673 176182 5 Control Medical (47894) Systems Inc ACIST Acist 1 79398 452053 645870 071400 5 Manifold Medical (87310) Systems Inc DIAGNOSTIC Cardinal 1 CB8342 046186 26818 265154 30 Simplify 5Fr catheter set (UF6850) Tegaderm 4 x 3M 1 1626W 118171 817358 178390 5 4 (1626W) TUBING High Merit 1 [id number] 799691 35363 678725 10 Pressure Medical Extension Tubing (Ambriz) ([id number]) INFLATOR Merit 1 UZ6755 303413 456679 617967 15 Kpc [facility] Medical BasixCompak (WA8546) BMW 300cm Recinos 1 [id number] 885435 940504 338177 5 [place]eter 2 Vascular J wire (3682235E) MULTIPACK JL Cardinal 1 029264 5 4.0 5Fr Health catheter GUIDE 6FR Cardinal 1 [id number] 529169 307838 158855 10 XBLAD 3.5 Health catheter (60434547) EMERGE OTW [place] 1 [id number] 180047 891288 723968 5 [id number] 2.5 x 20 Scientific balloon ([id number]) INTEGRITY Medtronic 1 [id number] 429988 192978 582558 8 [id number] OTW 2.75 X 12 stent ([id number]) MULTIPACK Cardinal 1 315448 5 Pigtail 5 Fr Health catheter EXOSEAL 6Fr Cardinal 1 EX600 951128 602767 690731 10 (EX600) Health Signature Audit [place] Stage Time Signature Unsigned Intra-Procedure 11/20/2018 Raymundo Klein 8:03:31 AM RT(R) Signatures Monitor : Raymundo Klein RT Signature : Date : Time : [place] [id number] [place] [address]
[2018-11-20 07:25] LABS: BASOPHILS 0.4 % (0-2); EOSINOPHILS 5.1 % (0-7); HEMATOCRIT 45.2 % (42.0-54.0); HEMOGLOBIN 15.5 g/dL (13.5-17.5); IMMATURE GRANULOCYTES 0.4 % (0-5); LYMPHOCYTES 30.6 % (15-50); MCHC 34.3 g/dL (31.0-37.0); MCV 87.4 fL (80.0-100.0); MEAN PLATELET VOLUME 11.5 fL (7.4-10.4); NEUTROPHILS 53.5 % (40-80); PLATELET COUNT 235 10x3/uL (130-400); RBC 5.17 10x6/uL (4.20-6.10); RDW 14.1 % (11.5-14.5); WBC 10.4 10x3/uL (4.8-10.8)
[2018-11-20 07:31] LABS: APTT 24.7 SECONDS (22.8-39.4); INR 1.12 (0.85-1.17); PROTIME 13.9 SECONDS (11.6-15.0)
[2018-11-20 07:36] LABS: ALBUMIN 3.6 g/dL (3.4-5.0); ALKALINE PHOSPHATASE 53 U/L (46-116); ALT (SGPT) 69 U/L (10-68); BILIRUBIN - TOTAL 0.31 mg/dL (0.2-1.3); CALC OSMOLALITY 282 mosm/kg (275-300); CALCIUM 9.1 mg/dL (8.5-10.1); CARBON DIOXIDE 30.4 mmol/L (21.0-32.0); CHLORIDE - SERUM 100 mmol/L (98-107); CREATININE - SERUM 1.4 mg/dL (0.6-1.3); GLUCOSE 133 mg/dL (74-106); PROTEIN - SERUM 7.4 g/dL (6.4-8.2); SODIUM 138 mmol/L (136-145); UREA NITROGEN 26 mg/dL (7-18); eGFR NON AFRICAN AMERICAN 55 mL/min (90-120)
[2018-11-20 07:48] LABS: CKMB 1.2 U/L (0.0-3.6); CREATINE KINASE 136 UL (21-232); MAGNESIUM - SERUM 2.5 mg/dL (1.8-2.4); TROPONIN-I 0.023 ng/mL (0.000-0.060)
--- NOTE | 2018-11-20 08:34 | NUR ---
REC'D PT TO ICU. L GROIN DSNG CDI AND PPP. PT RESTING QUIETLY, VSS, AFEBRILE. ALL MONITORING EQUIPMENT ATTACHED AND ALARMS SET. INSTRUCTED TO KEEP LLE FLAT. PT VERB UNDERSTANDING.
--- NOTE | 2018-11-20 11:05 | NUR ---
PT RESTING QUIETLY, RT GROIN DSNG CDI. PPP.
--- NOTE | 2018-11-20 13:36 | NUR ---
PT DENIES PAIN. L GROIN DSNG CDI, NO HEMATOMA,PPP. MEAL TRAY PROVIDED AND PT PETERSON WELL.
--- NOTE | 2018-11-20 19:00 | NUR ---
ORIENTED X 4. DENIES CHEST PAIN/ DISCOMFORT OR SOB. SPEECH CLEAR AND APPROPRIATE. PERIPHERAL PULSES PALP. MONITORS CONNECTED TO PT WITH ALARMS SET. CALL LIGHT IN REACH AND ABLE TO UTILIZE TO MAKE NEEDS KNOWN. VSS.
--- NOTE | 2018-11-20 19:00 | NUR ---
REPORT RECEIVED. RECEIVED PT IN BED. AWAKE AND ALERT. ORIENTED
--- NOTE | 2018-11-20 21:36 | NUR ---
AWAKE AND ALERT. DENIES PAIN. CALL LIGHT IN REACH. VSS. NO DISTRESS OBSERVED.
--- NOTE | 2018-11-20 23:00 | NUR ---
REASSESSMENT DONE SEE FLOW SHEET. HEART TONES DISTANT NARROWING PULSE PRESSURES. PT DOES NOT COMPLAIN OF ANY CHEST PAIN. WILL CONTINUE TO MONITOR.
--- NOTE | 2018-11-20 23:27 | NUR ---
DR LUEVANO INFORMED OF PT STATUS. PT HR ELEVATED. BP NARROWING PRESSURES. DISTANT HEART SOUNDS. NO NEW ORDERS RECEIVED.
[2018-11-21] VITALS (12 sets, daily range): BP systolic 121–180; BP diastolic 60–108
--- NOTE | 2018-11-21 01:00 | NUR ---
DIET SPRITE PROVIDED PER PT REQUEST. PT VERBALIZES NO COMPLAINTS. WILL CONITNUE TO MONITOR.
--- NOTE | 2018-11-21 03:00 | NUR ---
REASSESSMENT DONE SEE FLOW SHEET. VSS.
--- NOTE | 2018-11-21 05:00 | NUR ---
PT IN BED RESTING. VSS. NO SIGNS OF ACUTE DISTRESS NOTED.
--- NOTE | 2018-11-21 08:31 | NUR ---
DR ANN HERE THIS AM. REC'D NEW ORDERS.
--- NOTE | 2018-11-21 11:16 | NUR ---
Nutrition Follow up Diet advanced to AHA Pt ate 100% of lunch yesterday Weight 211lb Reviewed labs Plans to transfer to floor today Spoke with pt about nutrition and pt plans on following a heart healthy diet at home and trying to lose weight. Pt plans to choose lean meats, eat more vegetables, switch to olive oil and increase fiber. RD following
--- NOTE | 2018-11-21 12:54 | MORECARE ---
CASE MANAGEMENT DISCHARGE SUMMARY PATIENT: ANNE ENCARNACION JR UNIT: [id number] ADM DATE: 11/20/18 AGE: 58 : 62 SEX: M ROOM/BED: D.2305 AUTHOR: LIZETT SAEED PHYSICIAN: REFERRING PHYSICIAN: BARBARA ANN M.D. DATE OF SERVICE: 11/21/18 Discharge Plan Patient Name: ANNE ENCARNACION Facility: [facility]:[place] : 1960 Planned Disposition: Home Anticipated Discharge Date: Discharge Date: Expected LOS: Initial Reviewer: [email or web address] Initial Review Date: 11/21/2018 Generated: 11/21/18 1:54 pm Patient Name: ANNE ENCARNACION Page 73941 at 1254 All edits/amendments must be made on the electronic document DICTATION DATE: 11/21/18 1254 PUBLIC HEALTH OUTREACH WORKER: JENNIFER 11/21/18 1254 RPT#: [id number] DC DATE: STATUS: ADM IN [facility] [address] [place] [address] END OF REPORT
--- NOTE | 2018-11-21 13:03 | MORECARE ---
CASE MANAGEMENT DISCHARGE SUMMARY PATIENT: ANNE ENCARNACION UNIT: [id number] ADM DATE: 11/20/18 AGE: 58 : 62 SEX: M ROOM/BED: D.2305 AUTHOR: DARLINDOC PHYSICIAN: REFERRING PHYSICIAN: BARBARA ANN M.D. DATE OF SERVICE: 11/21/18 Discharge Plan Patient Name: ANNE ENCARNACION Facility: 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 Patient states he lives at home with his girlfriend (Jonnie). He plans on returning to their home upon discharge. He states he feels safe at his home. He states he will have family drive him home upon discharge. He denies any discharge needs at this time. CM will continue to follow and assist as needed with discharge planning / needs. Produce Sorter: Shelley Hoff DCPIA - Discharge Planning Initial Assessment Updated by [email or web address]: Shelley Hoff on 11/21/18 12:58 pm * Is the patient Alert and Oriented? Yes * How many steps to enter\exit or inside your home? * PCP [facility] * Pharmacy [facility] * Preadmission Environment Home with Family * ADLs Independent * Equipment None * List name and contact numbers for known caregivers / representatives who currently or will assist patient after discharge: Jonnie Terry - girlfriend - [phone] * Verbal permission to speak to the caregivers and representatives has been obtained from the patient. Yes * Community resources currently utilized None * Additional services required to return to the preadmission environment? No * Can the patient safely return to the preadmission environment? Yes * Has this patient been hospitalized within the prior 30 days at any hospital? No Last DP export: 11/21/18 11:54 a Patient Name: ANNE ENCARNACION Page 32866 at 1303 All edits/amendments must be made on the electronic document DICTATION DATE: 11/21/18 1302 SUPPLY CHAIN CONSULTANT: JENNIFER 11/21/18 1302 RPT#: [id number] DC DATE: STATUS: ADM IN [facility] [address] [place] [address] END OF REPORT
--- NOTE | 2018-11-21 15:08 | NUR ---
recieved from icu. alert and oriented. TELEMERTY SHOWS SR. SL TO RIGHT AC. RESP REG AND NONE LABORED. UP AB DEANN. RUPERTO LIGHT IN NISHA
--- NOTE | 2018-11-21 19:53 | NUR ---
PT LAYING IN BED FLAT. ALERT AND ORIENTED. PT COMPLAINS OF HEADACHE. DENIES ANY NEEDS AT THIS TIME. BED LOW CALL LIGHT WITHIN REACH. WILL CONTINUE TO MONITOR.
--- NOTE | 2018-11-21 23:10 | NUR ---
I have reviewed this patient and I concur with the Shift Assessment completed by the Licensed Practical Nurse today this shift.
[2018-11-22 00:35] VITALS: BP 140/100
[2018-11-22 05:00] VITALS: BP 144/90
[2018-11-22 07:40] VITALS: BP 122/91
--- NOTE | 2018-11-22 08:38 | NUR ---
AM ROUNDS COMPLETED. INTRODUCED MYSELF TO PT PRIMARY RN FOR TODAYS SHIFT. SHIFT ASSESSMENT COMPLETED. PT STATES HE IS FEELING REALLY GOOD AND HOPING TO BE DISCHARGED TODAY. AT BEDSIDE NO CURRENT NEEDS AT THIS TIME. CL IN REACH, BED IN LOWEST, SIDE RAILS X2. WILL CTM.
--- NOTE | 2018-11-22 11:11 | NUR ---
D/C PTS R.AC PIV WITH CATHETER TIP FULLY INTACT. DISCHARGE TEACHING PROVIDED AND PAPERS SIGNED. PT VERBALIZED UNDERSTANDING AND DENIES ANY QUESTIONS OR CONCERNS. PT IS COLLECTING HIS BELONGINGS WITH SPOUSE AT BEDSIDE. ASPRIIN NOT ON MED LIST HOWEVER PT IS ON A BABY ASA AND VERBALIZED UNDERSTANDING TO CONTINUE TAKING DAILY. NO FURTHER NEEDS AT THIS TIME. WILL ESCORT PT OUT WHEN HE IS READY.
--- NOTE | 2018-11-22 12:59 | NUR ---
PT READY TO LEAVE NOW AND HAS HIS TRANSPORTATION AT BEDSIDE. PT REFUSED A W/C ESCORT AND WANTS TO AMBULATE WITH HIS SPOUSE. BLANKET WINDER HELPER AT SIDE TO ASSIST. NO FURTHER NEEDS. PT NOW LEAVING.
--- NOTE | 2018-11-24 09:23 | MORECARE ---
CASE MANAGEMENT DISCHARGE SUMMARY PATIENT: ANNE ENCARNACION UNIT: [id number] ADM DATE: 11/20/18 AGE: 58 : 62 SEX: M ROOM/BED: D.2129 AUTHOR: LIZETT SAEED PHYSICIAN: REFERRING PHYSICIAN: BARBARA ANN M.D. DATE OF SERVICE: 11/24/18 Discharge Plan Patient Name: ANNE ENCARNACION Facility: [facility]:[place] : 1960 Planned Disposition: Home Anticipated Discharge Date: 11/22/18 Discharge Date: 11/22/2018 Expected LOS: 2 Initial Reviewer: [email or web address] Initial Review Date: 11/21/2018 Generated: 11/24/18 10:23 am Comments DCP- Discharge Planning Updated by [email or web address]: hSelley Hoff on 11/21/18 12:[address] Patient Name: ANNE ENCARNACION Admission Status: ER Accout number: [id number] Admission Date: 11-20-2018 : 1960 Admission Diagnosis:STEMI INVOLVING OTH CORONARY ARTERY OF ANTERIOR WALL Attending: BARBARA ANN Current LOS: 1 Anticipated DC Date: Planned Disposition: Home Primary Insurance: [employer] EXCHANGE Discharge Planning Comments: CM met with patient and spouse at bedside. Patient states he lives at home with his girlfriend (Jonnie). He plans on returning to their home upon discharge. He states he feels safe at his home. He states he will have family drive him home upon discharge. He denies any discharge needs at this time. CM will continue to follow and assist as needed with discharge planning / needs. Labourers: Shelley Hoff DCPIA - Discharge Planning Initial Assessment Updated by [email or web address]: Shelley Hoff on 11/21/18 12:58 pm * Is the patient Alert and Oriented? Yes * How many steps to enter\exit or inside your home? * PCP [facility] * Pharmacy [facility] * Preadmission Environment Home with Family * ADLs Independent * Equipment None * List name and contact numbers for known caregivers / representatives who currently or will assist patient after discharge: Jonnie Terry - girlfriend - [phone] * Verbal permission to speak to the caregivers and representatives has been obtained from the patient. Yes * Community resources currently utilized None * Additional services required to return to the preadmission environment? No * Can the patient safely return to the preadmission environment? Yes * Has this patient been hospitalized within the prior 30 days at any hospital? No Last DP export: 11/21/18 12:03 p Patient Name: ANNE ENCARNACION Page [phone] at 0923 All edits/amendments must be made on the electronic document DICTATION DATE: 11/24/18922 DIRECTOR NON PROFIT: JENNIFER 11/24/18922 RPT#: [id number] DC DATE:11/22/18 STATUS: DIS IN [facility] [address] [place] [address] END OF REPORT
== END 2018-11-22 13:30 | disposition home or self-care (01) | DRG 248 ==
LOC: D.ER 06:57 → D.CATH 06:57 → EDSTATUS 07:27 → D.ICU 08:27 → D.CATH 23:28 → D.ICU 23:28 → D.M2 11-21 14:56
PROVIDERS: Family Medicine; ADMIT Internal Medicine Cardiovascular Disease; ATTEND Internal Medicine Cardiovascular Disease
PROC: B2151ZZ Fluoroscopy of Left Heart using Low Osmolar Contrast (ICD-10-PCS; 2018-11-20)
PROC: 4A023N7 Measurement of Cardiac Sampling and Pressure, Left Heart, Percutaneous Approach (ICD-10-PCS; 2018-11-20)
PROC: 02703DZ Dilation of Coronary Artery, One Artery with Intraluminal Device, Percutaneous Approach (ICD-10-PCS; principal; 2018-11-20 07:19)
PROC: B2111ZZ Fluoroscopy of Multiple Coronary Arteries using Low Osmolar Contrast (ICD-10-PCS; 2018-11-20 07:19)
DX: I97.190 Other postprocedural cardiac functional disturbances following cardiac surgery (principal); I21.A9 Other myocardial infarction type; T82.867A Thrombosis due to cardiac prosthetic devices, implants and grafts, initial encounter; I10 Essential (primary) hypertension; E78.5 Hyperlipidemia, unspecified; I25.10 Atherosclerotic heart disease of native coronary artery without angina pectoris

== ENCOUNTER → 2019-04-22 16:56 | Outpatient (CLI) | payer BC, MEDICAID ==
[2018-11-20 10:35] VITALS: BMI 30.5
[2019-04-22 19:24] LABS: CHOL - HDL RATIO 2.8 ratio (2.3-4.9); LDL-HDL RATIO 1.5 ratio (1.5-3.5)
== END | disposition home or self-care (01) ==
LOC: D.LABREF 16:56
PROVIDERS: ATTEND Internal Medicine Cardiovascular Disease
DX: I25.10 Atherosclerotic heart disease of native coronary artery without angina pectoris (principal)

== ENCOUNTER → 2019-05-13 13:32 | Outpatient (CLI) | payer BC, MEDICAID ==
[2018-11-20 10:35] VITALS: BMI 30.5
== END | disposition home or self-care (01) ==
LOC: D.HCCARDIO 05-01 14:00 → D.HCCECHO 13:32 → D.HCCARDIO 14:00 → D.HCCECHO 14:00
PROVIDERS: ATTEND Internal Medicine Cardiovascular Disease
DX: I25.10 Atherosclerotic heart disease of native coronary artery without angina pectoris (principal)

== ENCOUNTER 2019-09-21 08:56 | Emergency (ER) | payer MEDICAID ==
[~2019-09-21] VITALS: Ht 177.8 cm; Wt 84.1 kg
[2019-09-21 08:59] VITALS: Ht 177.8 cm; Wt 84.1 kg
[2019-09-21 09:38] VITALS: BP 146/93
--- NOTE | 2019-09-21 09:39 | NUR ---
PT REPORTS INTERMITTANT CHEST PAIN OVER "THE LAST WEEK OR SO" HE IS POSITIVE FOR A CARDIAC HX INCLUDING PREVIOUS DC. HE ALOS REPORTS HE HAS "HAD MULTIPLE STROKES" - NO DEFICITS PRESENT ON ASSESSMENT. PT ASO REPORTS HE HAS BEEN EATING HABENERO PEPPERS WITH GI UPSET AFTER CONSUMPTION. PT ALSO REPORTS THAT HE STARTED TAKING AN UNKNOWN DOSAGE AND AMOUNT OF "MY BLOOD THINNER" DUE TO RECENT EPISODES OF CHEST PAIN. HE IS EDUCATED NOT TO TAKE MEDICATIONS THAT ARE NOT CURRENT PRESCRIPTIONS AND IS CAUTIONED REGARDING THE RISK INVOLVED WITH TAKING MEDICATION WHEN NOT UNDER THE SUPERVISION OF A MEDICAL PROFESSIONAL.
[2019-09-21 09:40] LABS: BASOPHILS 0.2 % (0-2); CALC OSMOLALITY 280 mosm/kg (275-300); CALCIUM 9.2 mg/dL (8.5-10.1); CARBON DIOXIDE 29.3 mmol/L (21.0-32.0); CHLORIDE - SERUM 103 mmol/L (98-107); CREATININE - SERUM 1.1 mg/dL (0.6-1.3); EOSINOPHILS 2.7 % (0-7); GLUCOSE 89 mg/dL (74-106); HEMATOCRIT 45.3 % (42.0-54.0); HEMOGLOBIN 15.9 g/dL (13.5-17.5); IMMATURE GRANULOCYTES 0.2 % (0-5); MCH 30.3 pg (26.0-34.0); MCHC 35.1 g/dL (31.0-37.0); MCV 86.3 fL (80.0-100.0); MEAN PLATELET VOLUME 11.3 fL (7.4-10.4); MONOCYTES 9.1 % (2-11); NEUTROPHILS 64.8 % (40-80); PLATELET COUNT 212 10x3/uL (130-400); POTASSIUM - SERUM 3.7 mmol/L (3.5-5.1); RBC 5.25 10x6/uL (4.20-6.10); RDW 13.4 % (11.5-14.5); SODIUM 140 mmol/L (136-145); UREA NITROGEN 22 mg/dL (7-18); WBC 6.6 10x3/uL (4.8-10.8); eGFR NON AFRICAN AMERICAN 73 mL/min (90-120)
[2019-09-21 09:54] LABS: ALBUMIN 4.1 g/dL (3.4-5.0); ALKALINE PHOSPHATASE 52 U/L (30-120); ALT (SGPT) 42 U/L (10-68); AMYLASE - SERUM 160 U/L (25-115); BILIRUBIN - TOTAL 0.41 mg/dL (0.2-1.3); CREATINE KINASE 184 UL (21-232); LIPASE 390 U/L (73-393); PROTEIN - SERUM 8.1 g/dL (6.4-8.2)
[2019-09-21 09:57] LABS: TROPONIN-I < 0.017 ng/mL (0.000-0.060)
[2019-09-21 10:46] LABS: APTT 29.1 SECONDS (22.8-39.4); INR 0.93 (0.85-1.17); PROTIME 12.5 SECONDS (11.6-15.0)
[2019-09-21 11:47] VITALS: BP 143/98
--- NOTE | 2019-09-21 11:47 | NUR ---
LUNCH TRAY GIVEN TO PT
[2019-09-21] MEDS ORDERED: PROTONIX40 MG PO (13:06)
--- NOTE | 2019-09-21 13:17 | MORECARE ---
CASE MANAGEMENT DISCHARGE SUMMARY PATIENT: ANNE ENCARNACION JR UNIT: [id number] ADM DATE: 09/21/19 AGE: 59 : 62 SEX: M ROOM/BED: D.E16 AUTHOR: LIZETT SAEED PHYSICIAN: REFERRING PHYSICIAN: PAULINE TALLEY MD DATE OF SERVICE: 09/21/19 Discharge Plan Patient Name: ANNE ENCARNACION Facility: [facility]:[place] : 1960 Planned Disposition: Anticipated Discharge Date: Discharge Date: Expected LOS: Initial Reviewer: [email or web address] Initial Review Date: 09/21/2019 Generated: 09/21/19 2:17 pm Comments DCP- Discharge Planning Updated by [email or web address]: Emma Pena on 09/21/19 12:[address] Per MD request, CM contacted Dr. Allen's office for OP Cardiolite ST. Spoke with Marlen and testing will be on Saturday09/28/19 @1010 at the [facility]. Patient is to arrive at 0930. Instructions given to patient's nurse. Patient Name: ANNE ENCARNACION Page [phone] at 1317 All edits/amendments must be made on the electronic document DICTATION DATE: 09/21/19 1317 PET CARETAKER: JENNIFER 09/21/19 1317 RPT#: [id number] DC DATE: STATUS: ADM IN [facility] [address] [place] [address] END OF REPORT
[2019-09-21 13:21] VITALS: BP 144/96
--- NOTE | 2019-09-21 13:21 | NUR ---
DR LUEVANO PLACED PT FOR DISCHARGE. NOT FURHTER MEDICATION REQUIRED.
--- NOTE | 2019-09-22 11:25 | CN ---
PATIENT NAME:ANNE ENCARNACION JR MEDICAL RECORD: [id number] : 62 [facility] AD[facility] DATE: 09/21/19 ACCOUNT: [id number] CONSULTING PHYSICIAN: SYLVAIN LUEVANO MD REFERRING PHYSICIAN: PAULINE TALLEY MD DATE OF CONSULTATION: 09/21/2019 ADMITTING DIAGNOSES: 1. Angina. 2. Coronary artery disease. 3. Previous percutaneous transluminal coronary angioplasty stent. 4. Hypertension. 5. Hyperlipidemia. HISTORY OF PRESENT ILLNESS: This is a gentleman who presents with chest pain, but he has had no chest pain since last week. He has had approximately 1 week without chest pain. He was beginning to get chest pain started taking his Brilinta again. His chest pain resolved. His EKG is with no ST-T abnormalities. Troponin is normal. He is pain free now. REVIEW OF SYSTEMS: The patient reports easy bruising but reports no swollen glands. The patient reports no fever, no night sweats, no significant weight gain, no significant weight loss. No significant exercise tolerance. The patient reports no dry eyes, no irritation, no vision change. Patient reports no difficulty hearing and no ear pain. Patient reports no frequent nose bleeds or nose and sinus problems. Patient reports on arm pain on exertion. No shortness of breath while lying down. No history of heart murmur. Patient reports no cough, no wheezing or coughing up blood. Patient reports no abdominal pain, no vomiting. Normal appetite. No diarrhea and not vomiting blood. No nausea and no constipation. Patient reports no incontinence. No difficulty urinating. No hematuria. No increased frequency. Patient reports no muscle aches. No weakness, no arthralgias, no back pain. No swelling of the extremities. Patient reports no abnormal mole, no jaundice, no rashes. Reports no loss of consciousness. No weakness and no numbness. No seizures, dizziness, or headaches. The patient reports no depression, no sleep disturbance, feeling safe in a relationship and no alcohol abuse. Patient reports on fatigue. Reports no runny nose or sinus pressure. No itching, no hives, and no frequent sneezing. PHYSICAL EXAMINATION: CONSTITUTIONAL/GENERAL APPEARANCE: Well nourished, well developed, appears stated age. EYES: Lids and conjunctivae noninjected. No discharge. No pallor. ENT: Lips within normal limit. No cyanosis. No pallor. NECK: Carotid arteries, bilateral normal upstroke. No bruits. No thrills. No jugular venous pressure or distention. CERVICAL LYMPH NODES: Nontender. Nonenlarged. THYROID: Not enlarged. No nodules. CARDIOVASCULAR: Precordial exam, nondisplaced. No heaves or pericardial thrills. Rate and rhythm, regular. Heart sounds, normal S1, normal S2. No S3, no gallop, no rub. Systolic murmur, not heard. Diastolic murmur, not heard. RESPIRATORY: Respiratory effort, unlabored. Normal curvature. No thoracic deformity. No chest wall tenderness. Percussion, resonant. Auscultation, clear. No wheezes, no rales, no rhonchi. ABDOMEN: Soft, nondistended, nontender. No abdominal pain, no vomiting and CONSULT REPORT [id number] ANNE ENCARNACION JR normal appetite. MUSCULOSKELETAL: No joint tenderness, normal gait, normal tone. SKIN: Warm and dry. Last cardiac stenting was September of last year. We will risk stratify with stress testing as an outpatient. TRANSINT:[id number] Voice Confirmation ID: [id number] DOCUMENT ID: [id number] SYLVAIN LUEVANO MD at 1125 CC: [id number] DICTATION DATE: 09/21/19 1303 AERIAL GUNNER: 09/21/19 1831 DIS IN 09/21/19 [address] [place] [address]
== END 2019-09-21 13:30 | disposition home or self-care (01) ==
LOC: OBSVTIME → D.ER 08:56 → D.M2 11:36 → D.ER 11:36 → OBSVTIME 12:57 → D.EDHOLD 13:06 → D.M2 13:06 → D.EDHOLD 13:06 → D.ER 13:30 → D.EDHOLD 18:53 → D.SDCHOLD 18:53
PROVIDERS: Family Medicine
DX: I25.119 Atherosclerotic heart disease of native coronary artery with unspecified angina pectoris (principal); I10 Essential (primary) hypertension; E78.5 Hyperlipidemia, unspecified; Z95.5 Presence of coronary angioplasty implant and graft; K29.70 Gastritis, unspecified, without bleeding

== ENCOUNTER 2020-04-12 20:24 | Inpatient (IN) | payer MEDICAID ==
[~2020-04-12] VITALS: Ht 177.8 cm; Wt 83.9 kg
--- NOTE | ~2020-04-12 | HEMODYNAMI ---
PATIENT:ANNE ENCARNACION JR MEDICAL RECORD: [id number] : 62 LOCATION:[facility] D.[address] [facility]# [id number] ADMISSION DATE: 04/12/20 Generatedon:04/13/202014:56 Patient name: ANNE ENCARNACION Patient #: [id number] SSN: [id number] : 1960 Date of study: 04/13/2020 Page: Of Hemodynamic Procedure Report Patient Data Patient Demographics Procedure consent was obtained First Name: ANNE Gender: Male Last Name: ALYSHA Suffix: Patient #: [id number] : 1960 Age: 59 year(s) SSN: [id number] Race: [place] [employer] Accession #: / [id number] Additional ID: [id number] Contact details [address]: [address] [place] [address] State: [place] City: [place] Zip code: [address] Past Medical History Allergies Allergen Reaction Date Comments Reported Shellfish 11/17/2018 Other allergy 04/13/2020 iodine, CUCUMBER, SHRIMP, Admission Admission Data Admission Date: 04/12/2020 Admission Time: 23:20 Arrival Date: 04/12/2020 Arrival Time: 23:20 Admit Source: Emergency Insurance Payor: Private department health insurance Room #: D.2122 [facility] #: [id number] Height (in.): 69.69 BSA: 2.01 (m2) Height (cm.): 177 BMI: 26.81 (kg/m2) Weight (lbs.): 185.19 Weight (kg.): 84 Lab Results Lab Result Date: 04/13/2020 Lab Result Time: 0:00 Biochemistry Name Units Result Min Max BUN mg/dl 16 --(---*)-- 7 18 Creatinine mg/dl 1 --(--*-)-- 0.6 1.3 eGFR ml/min 81 *-(----)-- 90 120 NONAFRICAN CBC Name Units Result Min Max Hemoglobin g/dl 14.7 --(-*--)-- 13.5 17.5 Procedure Procedure Types Cath Procedure Diagnostic Procedure [facility] w/Coronaries Sedation Charges Moderate Sedation up to 15 minutes Procedure Description Procedure Date Procedure Date: 04/13/2020 Procedure Start Time: 14:31 Procedure End Time: 14:51 Procedure Staff Name Function Alan Ambriz MD Performing Physician Haylee Holland RT Monitor Sheyla Weston RT Scrub Tracy Ochoa RN Nurse Procedure Data Cath Procedure Fluoroscopy Diagnostic fluoroscopy Total fluoroscopy Time: 2.9 time: 2.9 min min Diagnostic fluoroscopy Total fluoroscopy dose: 712 dose: 712 mGy mGy Contrast Material Contrast Material Type Amount (ml) Isovue 370 79 Entry Location Entry Primary Successful Side Size Upsize Upsize Entry Closure Succes sful Closure Location (Fr) 1 (Fr) 2 (Fr) Remarks Device Remarks Femoral Right 5 Fr Exoseal artery Estimated blood loss: 5 ml Diagnostic catheters Device Type Used For End Catheter Placement MULTIPACK JL 4.0 5Fr Procedure catheter MULTIPACK 3DRC 5Fr Procedure catheter DIAGNOSTIC IM 5Fr Procedure catheter ([id number]) MULTIPACK Pigtail 5 Fr Procedure catheter Procedure Complications No complications Procedure Medications Medication Administration Route Dosage Oxygen etCO2 Nasal cannula 2 l/min Lidocaine 2% added to field 20 Heparin Flush Bag added to field 2 bags (1000units/500ml NS) 0.9% NaCl I.V. 100 ml/hr Versed I.V. 1 mg Fentanyl I.V. 50 mcg Versed I.V. 1 mg Fentanyl I.V. 50 mcg Hemodynamics Rest BSA: 2.01 (m2) HGB: 14.7 (g/dl) O2 Consumption: Estimated: 249.19 (ml/min) O2 Co nsumption indexed: Estimated:123.98 (ml/min/m) Heart Rate: 86 (bpm) Pressure Samples Time Site Value (mmHg) Purpose Heart Use Rate(bpm) 14:45 LV 111/21,28 Snapshot 91 14:46 AO 150/98(124) Pullback 91 14:46 LV 141/13,26 Pullback 91 Gradients Valve Time Site 1 Site 2 Mean SEP/DFP Peak To Heart Use (mmHg) (sec/min) Peak Rate (mmHg) (bpm) Aortic 14:46 LV AO 0 5 0 91 141/13,26 150/98(124) Calculations Valve P-P Mean Valve Index Valve Source Name Gradient Area Flow (cm2) Aortic 0 0 0 0 Snapshots Pre Cath Intra NCS Post Cath Vital Signs Time Heart Resp SPO2 etCO2 NIBP (mmHg) Rhythm Pain Sedation Rate (ipm) (%) (mmHg) Status Level (bpm) 14:24:09 82 36 100 0 129/102(112) NSR 0 (11) 10(A) , No pain 14:28:13 88 19 98 15.7 144/108(124) NSR 0 (11) 10(A) , No pain 14:32:21 78 15 99 29.2 153/106(124) NSR 0 (11) 9(A) , No pain 14:36:31 81 18 96 32.9 156/114(126) NSR 0 (11) 9(A) , No pain 14:40:38 87 15 99 22.4 139/99(119) NSR 0 (11) 9(A) , No pain 14:44:46 77 19 95 28.4 145/101(124) NSR 0 (11) 9(A) , No pain 14:48:54 85 17 95 30.7 153/110(133) NSR 0 (11) 10(A) , No pain 14:53:04 85 19 98 34.4 150/104(120) NSR 0 (11) 10(A) , No pain Medications Time Medication Route Dose Verified Delivered Reason Notes Eff ectiveness by by 14:23:38 Oxygen etCO2 2 Alan Buffie used for Nasal l/min Pb Ochoa RN procedure cannula 14:23:45 Lidocaine 2% added 20ml Alan Alan for local to vial Pb Ambriz MD anesthetic field 14:23:51 Heparin Flush added 2 Alan Alan used for Bag to bags Pb Ambriz MD procedure (1000units/500ml field NS) 14:24:00 0.9% NaCl I.V. 100 Alan Buffie Per ml/hr Pb Ochoa RN physician 14:29:09 Versed I.V. 1 mg Alan Buffie for Pb Ochoa RN sedation 14:29:17 Fentanyl I.V. 50 Alan Buffie for mcg Pb Ochoa RN sedation 14:33:48 Versed I.V. 1 mg Alan Buffie for Pb Ochoa RN sedation 14:33:52 Fentanyl I.V. 50 Alan patino [facility] Pb Ochoa RN sedation Procedure Log Time Note 13:32:55 Informed consent obtained and on chart 13:35:47 Arrival Date: 04/12/2020 11:20:00 PM 13:36:12 Admit Source: Emergency department 13:36:48 Insurance Payor : Private health insurance 13:36:58 Patient Height : 69.69 inches 13:37:01 Patient Weight : 185.19 lbs 13:37:34 Lab Result : Creatinine 1 mg/dl 13:37:34 Lab Result : BUN 16 mg/dl 13:37:34 Lab Result : Hemoglobin 14.7 g/dl 13:37:34 Lab Result : eGFR NONAFRICAN 81 ml/min 13:37:42 Diagnostic Cath Status : Urgent 13:38:01 Procedure Status Urgent Heart Cath (IP). 13:38:03 Tracy Ochoa RN sent for patient. Start room use. 13:38:04 Time tracking: Regular hours (M-F 7:00 - 5:00) 13:38:09 Plan of Care:Hemodynamics will remain stable., Cardiac rhythm will remain stable., Comfort level will be maintained., Respiratory function will remain adequate., Patient/ family verbilizes understanding of procedure., Procedure tolerated without complication., Recovers from procedure without complications.. 14:05:59 H&P Date Dictated: 04/12/2020 Within 30 days and on chart.. 14:05:59 Pre-procedure instructions explained to patient. 14:05:59 Pre-op teaching completed and patient verbalized understanding. 14:06:01 Family unavailable. 14:06:03 Patient NPO since Midnight. 14:06:37 Patient allergic to Other allergyiodine, CUCUMBER, SHRIMP, 14:06:43 Lab results completed and on chart. 14:06:47 Stress Test: no; N/A ? 14:07:44 Alarms reviewed by R. N. 14:07:44 Sharps counted by scrub and verified by R.N. 14:08:10 ACC Patient presents with Stable Angina CCS Anginal Class 2--Slight limitation of ordinary activity. 14:10:28 Patient received from Med II to [facility] 2 Alert and oriented. Tansferred to table in Supine position. 14:10:30 Warm blankets applied, and deepa hugger turned on for patient comfort. 14:10:30 Correct patient and procedure confirmed by team. 14:10:31 ECG and BP/O2 sat monitors applied to patient. 14:10:43 Is the patient allergic to Iodine/contrast media? Yes. 14:10:45 Was the patient premedicated? Yes 14:10:56 Is patient on blood thinner?No 14:10:59 Patient diabetic? No. 14:11:01 If diabetic: On Metformin? N/A 14:11:08 ----Pre-sedation anethsthesia assessment.---- 14:11:10 Previous problem with sedation/anesthesia? No ? 14:11:11 Snore? Yes 14:11:12 Sleep apnea? No 14:11:13 Deviated septum? No 14:11:14 Opens mouth fully? Yes 14:11:15 Sticks out tongue? Yes 14:11:18 Airway obstruction? No ? 14:11:19 Dentures? No ? 14:11:24 Patient pain scale 0/10 ?. 14:11:31 IV patent on arrival in right hand with 0.9% NaCl at [facility]. 14:11:35 Right groin area was prepped with chlora-prep and draped in sterile fashion 14:23:22 Vital chart was started 14:23:38 Oxygen 2 l/min etCO2 Nasal cannula was administered by Tracy Ochoa RN; used for procedure; Verbal order read back and verified. 14:23:45 Lidocaine 2% 20ml vial added to field was administered by Alan Ambriz MD; for local anesthetic; Verbal order read back and verified. 14:23:51 Heparin Flush Bag (1000units/500ml NS) 2 bags added to field was administered by Alan Ambriz MD; used for procedure; Verbal order read back and verified. 14:24:00 0.9% NaCl 100 ml/hr I.V. was administered by Tracy Ochoa RN; Per physician; Verbal order read back and verified. 14:27:12 Baseline sample Acquired. 14:27:15 Rhythm: sinus rhythm 14:27:17 Full Disclosure recording started 14::28 --------ALL STOP TIME OUT------ 14:27:30 Final Timeout: patient, procedure, and site verified with staff and physician. All members of the team are in agreement. 14:27:33 Right groin site verified by team. 14:27:35 Fire Safety Assessment: A--An alcohol-based skin anteseptic being used preoperatively., C--Open oxygen or nitrous oxide is being used., D--An ESU, laser, or fiber-optic light is being used. 14:27:38 Physical assessment completed. ASA score P 2 - A patient with mild systemic disease as per Alan Ambriz MD. 14:27:40 2) 60-89 Mildly reduced kidney function, and other findings (as for stage 1) point to kidney disease. 14:27:43 Maximum allowable contrast dose (3.7 X eGFR X 0.75)225 ml. 14:29:09 Versed 1 mg I.V. was administered by Tracy Ochoa RN; for sedation; Verbal order read back and verified. 14:29:17 Fentanyl 50 mcg I.V. was administered by Tracy Ochoa RN; for sedation; Verbal order read back and verified. 14:30:46 Procedure started. 14:31:14 Local anesthetic to right femoral artery with Lidocaine 2% by Alan Ambriz MD.INITIAL ACCESS ONLY 14:33:48 Versed 1 mg I.V. was administered by Tracy Ochoa RN; for sedation; Verbal order read back and verified. 14:33:52 Fentanyl 50 mcg I.V. was administered by Tracy Ochoa RN; for sedation; Verbal order read back and verified. 14:35:06 ACIST Syringe (36948) opened to sterile field. 14:35:06 Bag Decanter (2002S) opened to sterile field. 14:35:07 Medline Cath Pack ([id number]) opened to sterile field. 14:35:08 ACIST Hand Control (96051) opened to sterile field. 14:35:09 ACIST Manifold (49518) opened to sterile field. 14:35:11 SHEATH 5FR [place] (WCP268) opened to sterile field. 14:35:12 EMERALD Guide Wire (548-722) opened to sterile field. 14:35:13 DIAGNOSTIC Multipack 5Fr catheter set (FW5977) opened to sterile field. 14:35:25 A 5 Fr sheath was inserted into the Right Femoral artery 14:35:26 Use device set Femoral Dx 14:35:57 A MULTIPACK JL 4.0 5Fr catheter was advanced over the wire and used for Procedure. 14:36:24 LCA angiography performed. 14:36:26 Injector settings: Ml/sec: 3, Volume: 6, 14:39:36 Catheter exchanged over wire. 14:40:07 A MULTIPACK 3DRC 5Fr catheter was advanced over the wire and used for Procedure. 14:40:40 RCA angiography performed. 14:40:44 Injector settings: Ml/sec: 3, Volume: 6, 14:41:27 ACCDominant side:Left 14:41:58 Catheter exchanged over wire. 14:42:35 A DIAGNOSTIC IM 5Fr catheter ([id number]) was advanced over the wire and used for Procedure. 14:43:40 NARAYANAN angiography performed. 14:44:01 Catheter exchanged over wire. 14:44:47 A MULTIPACK Pigtail 5 Fr catheter was advanced over the wire and used for Procedure. 14:45:01 LV gram done using STRINGER 14:45:39 LV hemodynamics recorded. 14:46:05 EF : 45 % 14:46:35 Catheter removed. 14:46:38 EXOSEAL 5Fr (EX500) opened to sterile field. 14:47:34 Sheath removed intact; hemostasis achieved with Exoseal to the Right Femoral artery. 14:47:43 Fluoroscopy time 02.90 minutes. 14:47:47 Fluoroscopy dose: 712 mGy 14:47:47 Flurop Dose total: 712 14:47:54 Dose Area Product 89950 mGy/cm. 14:47:58 Contrast amount:Isovue 370 79ml. 14:48:03 Procedure ended.(Physican Out) 14:48:11 Maximum allowable dose exceeded? No. 14:48:11 Sharps counted by scrub and verified by R.N. 14:48:16 Post-op/insertion site Right Femoral artery dressed using a 4 x 4 and Tegaderm. 14:48:21 Post right femoral artery:stable, soft, clean and dry 14:48:23 Post Procedure Pulses reassessed and unchanged 14:48:25 Post procedure: right dorsailis pedis pulse 2+ Normal; easily identifiable; not easily obliterated. 14:48:28 Post-procedure physical assessment completed. ASA score P 2 - A patient with mild systemic disease as per Alan Ambriz MD. 14:48:31 Post procedure rhythm: unchanged. 14:48:34 Estimated blood loss: 5 ml 14:48:36 Post procedure instruction explained to patient.Patient verbalizes understanding. 14:48:37 Patient needs reinforcement of post procedure teaching. 14:48:53 Procedure type changed to Cath procedure, Diagnostic procedure, LHC, [facility] w/Coronaries, Sedation Charges, Moderate Sedation up to 15 minutes 14:49:16 Procedure and supply charges have been captured, reviewed, submitted and are correct. 14:49:20 Procedure Complication : No complications 14:50:54 [facility] Findings: MVD- CABG consult 14:50:59 Operative report dictated upon procedure completion. 14:51:00 See physician's report for complete and final results. 14:51:02 Report given to Med II. 14:51:06 Patient transfered to [facility] II with Bed. 14:51:08 Procedure ended. 14:51:08 Full Disclosure recording stopped 14:51:14 End room use (Document Last) 14:51:28 End room use (Document Last) 14:51:58 End room use (Document Last) 14:56:04 Vital chart was stopped Device Usage Item Name Manufacture Quantity Catalog Hospital Part Current Minimal L ot# / Number Charge Number Stock Stock Serial# Code ACIST Acist 1 66869 973653 553275 252792 20 Syringe Medical (37062) Systems Inc Bag Microtek 1 019013 68078 866188 5 Decanter Medical Inc. () Medline Medline 1 [id number] 897336 65536 792082 5 Cath Pack ([id number]) ACIST Hand Acist 1 42585 684983 848228 278240 5 Control Medical (81278) Systems Inc ACIST Acist 1 47852 271705 694011 671875 5 Manifold Medical (39710) Systems Inc SHEATH 5FR Terumo 1 FMN974 203848 418213 685627 5 [place] (KSE104) EMERALD Cardinal 1 502-455 395557 586997 882691 5 Guide Wire Health (502-455) DIAGNOSTIC Cardinal 1 LN2579 325544 19925 768022 30 Multipack Health 5Fr catheter set (IJ8353) MULTIPACK Cardinal 1 633740 5 JL 4.0 5Fr Health catheter MULTIPACK Cardinal 1 902920 5 3DRC 5Fr Health catheter DIAGNOSTIC Cardinal 1 [id number] 532735 282587 348552 5 IM 5Fr Health catheter (108100X) MULTIPACK Cardinal 1 588898 5 Pigtail 5 Health Fr catheter EXOSEAL 5Fr Cardinal 1 EX500 829678 604902 147561 10 (EX500) Health Signature Audit [place] Stage Time Signature Unsigned Intra-Procedure 04/13/2020 Haylee Holland 2:51:28 PM RT(R) Intra-Procedure 04/13/2020 Tracy Ochoa RN 2:51:58 PM Intra-Procedure 04/13/2020 Alan Ambriz MD 2:56:02 PM Signatures Performing Physician : Signature : Alan Ambriz MD Date : Time : Monitor : Haylee Holland Signature : RT Date : Time : Nurse : Tracy Ochoa RN Signature : Date : Time : [address] [place] [address]
[~2020-04-12 20:24] MED LIST changes: +PROTONIX40 MG PO
[2020-04-12] MEDS ORDERED: LIPITOR20 MG PO (20:34)
[2020-04-12] MEDS ORDERED: [UNRECOGNIZED DRUG - MIXTURE] (20:39)
[2020-04-12 20:59] LABS: BASOPHILS 0.2 % (0-2); EOSINOPHILS 4.8 % (0-7); HEMATOCRIT 44.8 % (42.0-54.0); HEMOGLOBIN 15.2 g/dL (13.5-17.5); IMMATURE GRANULOCYTES 0.3 % (0-5); LYMPHOCYTES 26.3 % (15-50); MCH 29.7 pg (26.0-34.0); MCHC 33.9 g/dL (31.0-37.0); MCV 87.5 fL (80.0-100.0); MEAN PLATELET VOLUME 11.4 fL (7.4-10.4); MONOCYTES 10.5 % (2-11); NEUTROPHILS 57.9 % (40-80); PLATELET COUNT 215 10x3/uL (130-400); RBC 5.12 10x6/uL (4.20-6.10); RDW 13.4 % (11.5-14.5); WBC 5.8 10x3/uL (4.8-10.8)
[2020-04-12 21:11] LABS: CALC OSMOLALITY 280 mosm/kg (275-300); CALCIUM 8.9 mg/dL (8.5-10.1); CARBON DIOXIDE 27.5 mmol/L (21.0-32.0); CHLORIDE - SERUM 103 mmol/L (98-107); CREATININE - SERUM 1.2 mg/dL (0.6-1.3); GLUCOSE 120 mg/dL (74-106); POTASSIUM - SERUM 3.4 mmol/L (3.5-5.1); SODIUM 139 mmol/L (136-145); UREA NITROGEN 18 mg/dL (7-18); eGFR NON AFRICAN AMERICAN 66 mL/min (90-120)
[2020-04-12 21:23] LABS: ALKALINE PHOSPHATASE 70 U/L (30-120); ALT (SGPT) 30 U/L (10-68); BILIRUBIN - TOTAL 0.26 mg/dL (0.2-1.3); C-REACTIVE PROTEIN 0.3 mg/dL (0.0-0.9); LIPASE 301 U/L (73-393); MAGNESIUM - SERUM 2.1 mg/dL (1.8-2.4); PRO BNP 151 pg/mL (0-125); PROTEIN - SERUM 7.7 g/dL (6.4-8.2)
[2020-04-12 21:30] LABS: TROPONIN-I < 0.017 ng/mL (0.000-0.060)
[2020-04-12 23:35] VITALS: BP 147/91
--- NOTE | 2020-04-13 02:00 | NUR ---
NO TELEMTRY AVIABLE AT THIS TIME.
[2020-04-13 02:10] VITALS: BP 161/100; BMI 26.6
[2020-04-13 04:00] VITALS: BP 159/102
[2020-04-13 06:28] LABS: BASOPHILS 0.5 % (0-2); EOSINOPHILS 4.5 % (0-7); HEMATOCRIT 44.1 % (42.0-54.0); HEMOGLOBIN 14.7 g/dL (13.5-17.5); IMMATURE GRANULOCYTES 0.5 % (0-5); LYMPHOCYTES 21.5 % (15-50); MCH 29.2 pg (26.0-34.0); MCHC 33.3 g/dL (31.0-37.0); MCV 87.5 fL (80.0-100.0); MEAN PLATELET VOLUME 11.4 fL (7.4-10.4); MONOCYTES 11.5 % (2-11); NEUTROPHILS 61.5 % (40-80); PLATELET COUNT 210 10x3/uL (130-400); RBC 5.04 10x6/uL (4.20-6.10); RDW 13.4 % (11.5-14.5); WBC 6.5 10x3/uL (4.8-10.8)
[2020-04-13 06:54] LABS: CALC OSMOLALITY 274 mosm/kg (275-300); CALCIUM 8.3 mg/dL (8.5-10.1); CHLORIDE - SERUM 102 mmol/L (98-107); CKMB 30.8 U/L (0.0-3.6); CREATINE KINASE 467 UL (21-232); GLUCOSE 98 mg/dL (74-106); PHOSPHOROUS 2.8 mg/dL (2.5-4.9); POTASSIUM - SERUM 3.1 mmol/L (3.5-5.1); PRO BNP 169 pg/mL (0-125); SODIUM 137 mmol/L (136-145); UREA NITROGEN 16 mg/dL (7-18); eGFR NON AFRICAN AMERICAN 81 mL/min (90-120)
[2020-04-13 06:58] LABS: APTT 28.1 SECONDS (22.8-39.4); INR 0.99 (0.85-1.17); PROTIME 13.1 SECONDS (11.6-15.0)
--- NOTE | 2020-04-13 07:44 | NUR ---
A&O X4, STATES NO CHEST PAIN OR PRESSURE THIS MORNING. NO NEEDS VOICED AND NO DISTRESS NOTED. CALL LIGHT WIHTIN REACH AND BED IN LOWEST LOCKED POSITION.
[2020-04-13 09:00] VITALS: BP 151/99
[2020-04-13 13:36] VITALS: BP 180/110
--- NOTE | 2020-04-13 13:53 | NUR ---
PATIENT HAS BEEN NPO FOR LHC TODAY. PRE OP MEDS GIVEN. PLACED ON 2L PER NC.
--- NOTE | 2020-04-13 14:03 | NUR ---
TO CEILING INSULATION BLOWER VIA BED.
[2020-04-13 14:22] VITALS: Ht 177.8 cm; Wt 83.9 kg
--- NOTE | 2020-04-13 15:24 | NUR ---
RECEIVED BACK FROM [facility]. DRESSING TO RIGHT GROIN, C,D,I. IV FLUIDS TO RIGHT FA. DR ANN HERE TO SPEAK TO .
--- NOTE | 2020-04-13 18:30 | MORECARE ---
CASE MANAGEMENT DISCHARGE SUMMARY PATIENT: ANNE ENCARNACION JR UNIT: [id number] ADM DATE: 04/12/20 AGE: 59 : 62 SEX: M ROOM/BED: D.2122 AUTHOR: LIZETT SAEED PHYSICIAN: REFERRING PHYSICIAN: TAVO VANESSA MD DATE OF SERVICE: 04/13/20 Discharge Plan Patient Name: ANNE ENCARNACION Facility: [facility]:[place] : 1960 Planned Disposition: Anticipated Discharge Date: Discharge Date: Expected LOS: Initial Reviewer: [email or web address] Initial Review Date: 04/13/2020 Generated: 04/13/20 7:30 pm External Providers External Provider: OTHER-OTHER Next Contact Date: Service Request Date: Service Type: Resolution: Reviewer: Comments: Patient Name: ANNE ENCARNACION Page [id number] at 1830 All edits/amendments must be made on the electronic document DICTATION DATE: 04/13/201829 LETTER CARRIER: JENNIFER 04/13/201829 RPT#: [id number] DC DATE: STATUS: ADM IN [facility] [address] [place] [address] END OF REPORT
--- NOTE | 2020-04-13 18:38 | NUR ---
BHARTI PHARMACIST STATES TO START HEPRIN DRIP AT 9.9 AND I WILL ORDER A PTT IN 6 HOURS
--- NOTE | 2020-04-13 18:38 | MORECARE ---
CASE MANAGEMENT DISCHARGE SUMMARY PATIENT: ANNE ENCARNACION JR UNIT: [id number] ADM DATE: 04/12/20 AGE: 59 : 62 SEX: M ROOM/BED: D.[facility] AUTHOR: LIZETT SAEED PHYSICIAN: REFERRING PHYSICIAN: TAVO CONSTANTINO MD DATE OF SERVICE: 04/13/20 Discharge Plan Patient Name: ANNE ENCARNACION Facility: [facility]:[place] : 1960 Planned Disposition: Anticipated Discharge Date: Discharge Date: Expected LOS: Initial Reviewer: [email or web address] Initial Review Date: 04/13/2020 Generated: 04/13/20 7:37 pm Comments DCP- Discharge Planning Updated by [email or web address]: Emma Pena on 04/13/20 5:[address] CM contacted [place], with [facility] Transfer [facility] ([phone], FX [phone]) regarding need of transfer for CV surgery. Provided required information and faxed a face sheet. Provided Dr. Constantino phone number. Last DP export: 04/13/20 5:30 p Patient Name: ANNE ENCARNACION Page [id number] at 1838 All edits/amendments must be made on the electronic document DICTATION DATE: 04/13/201836 PROJECT DEVELOPMENT MANAGER: JENNIFER 04/13/201836 RPT#: [id number] DC DATE: STATUS: ADM IN [facility] [address] [place] [address] END OF REPORT
[2020-04-13 19:04] LABS: HEMATOCRIT 43.8 % (42.0-54.0); HEMOGLOBIN 14.7 g/dL (13.5-17.5); MCH 29.2 pg (26.0-34.0); MCHC 33.6 g/dL (31.0-37.0); MCV 86.9 fL (80.0-100.0); MEAN PLATELET VOLUME 11.4 fL (7.4-10.4); RBC 5.04 10x6/uL (4.20-6.10); RDW 13.1 % (11.5-14.5); WBC 5.1 10x3/uL (4.8-10.8)
[2020-04-13 19:15] LABS: INR 1.08 (0.85-1.17)
--- NOTE | 2020-04-13 19:48 | NUR ---
FACE SHEET FAXED TO [facility] BY Kristina ANNA RN.
[2020-04-13 20:00] VITALS: BP 133/93
--- NOTE | 2020-04-13 22:25 | NUR ---
SPOKE WITH DANIELLE FROM THE BED BOARD AT [facility] IN [place], INOFORMED HER THAT [facility] HAS A PT THAT IS TO BE TRANSFERRED TO THEIR FACILITY BEFORE 0800 IN THE MORNING AND I NEEDED TO KNOW WHAT ROOM THE PT WAS GOING TO AND WHO I CAN CALL REPORT TO. DANIELLE STATED THAT SHE WILL CALL ME BACK AT 0300 IN THE MORNING, WHEN I RESTATED THAT OUT PT, MR ENCARNACION HAS TO BE THERE BEFORE 0800, I WAS INFORMED THAT 0300 TO 0800 IS FIVE HOURS AND SHOULD BE PLENTY OF TIME TO GET PT TO [place]. [facility] HOUSE SUPPERVISOR NOTIFIED.
[2020-04-14] VITALS: BP 119/80
--- NOTE | 2020-04-14 02:58 | NUR ---
RECIEVED CALL FROM DANIELLE FROM [facility], PT HAS BEEN ASSIGNED TO BED CVSD BED # 2 AND PHONE NUUMBER TO CALL IS [phone].
--- NOTE | 2020-04-14 03:08 | NUR ---
ATTEMPTED TO CALL REPORT TO [facility] IN [place], SPOKE WITH ABIMBOLA AVILA. THIS NURSE WAS INFORMED THAT SINCE THE PT WASNT DUE TO BE AT [facility] UNTIL 0800 THAT THEY WILL NOT ACCEPT REPORT UNTIL THEY ARE ABOUT TO LEAVE OUR HOSPITAL BECAUSE THEY DONT HAVE A PHYSICAIN THERE AT THIS TIME TO EVAL THE PT. INFORMED TO CALL BACK AT 0530. NOTIFIED [facility] ASSET PROTECTION LEAD Vipin TREJO.
--- NOTE | 2020-04-14 05:40 | NUR ---
REPORT CALLED TO ANGELIC AT [facility].
--- NOTE | 2020-04-14 05:50 | NUR ---
EMS CALLED FOR TRANSPORT.
[2020-04-14 06:28] LABS: BASOPHILS 0.1 % (0-2); EOSINOPHILS 0 % (0-7); HEMATOCRIT 43.7 % (42.0-54.0); HEMOGLOBIN 14.6 g/dL (13.5-17.5); IMMATURE GRANULOCYTES 0.2 % (0-5); LYMPHOCYTES 10.4 % (15-50); MCH 29.1 pg (26.0-34.0); MCHC 33.4 g/dL (31.0-37.0); MCV 87.2 fL (80.0-100.0); MEAN PLATELET VOLUME 11.3 fL (7.4-10.4); MONOCYTES 8.5 % (2-11); NEUTROPHILS 80.8 % (40-80); PLATELET COUNT 219 10x3/uL (130-400); RBC 5.01 10x6/uL (4.20-6.10); RDW 13.4 % (11.5-14.5)
[2020-04-14 06:37] LABS: WBC 11.5 10x3/uL (4.8-10.8)
--- NOTE | 2020-04-14 06:38 | NUR ---
PT DISCHARGED TO [facility] VIA EMS.
[2020-04-14 06:50] LABS: ANION GAP 12.7 mmol/L (8-16); CALCIUM 8.5 mg/dL (8.5-10.1); CARBON DIOXIDE 26.3 mmol/L (21.0-32.0); CREATININE - SERUM 1.1 mg/dL (0.6-1.3); MAGNESIUM - SERUM 1.9 mg/dL (1.8-2.4); PHOSPHOROUS 3.2 mg/dL (2.5-4.9)
--- NOTE | 2020-04-14 11:52 | MORECARE ---
CASE MANAGEMENT DISCHARGE SUMMARY PATIENT: ANNE ENCARNACION JR UNIT: [id number] ADM DATE: 04/13/20 AGE: 59 : 62 SEX: M ROOM/BED: D.0712 AUTHOR: LIZETT SAEED PHYSICIAN: REFERRING PHYSICIAN: TAVO CONSTANTINO MD DATE OF SERVICE: 04/14/20 Discharge Plan Patient Name: ANNE ENCARNACION Facility: [facility]:[place] : 1960 Planned Disposition: Other Type of Facility Anticipated Discharge Date: 04/14/20 Discharge Date: 04/14/2020 Expected LOS: 1 Initial Reviewer: [email or web address] Initial Review Date: 04/13/2020 Generated: 04/14/20 12:52 pm Comments DCP- Discharge Planning Updated by [email or web address]: Emma Pena on 04/14/20 10:[address] Patient transferred to [facility] ([phone]) disc jockey. CM notified Juan C with [facility], in order to cancel the transfer. John MOTA ([phone]) notified Christelle of DCP- Discharge Planning Updated by [email or web address]: Emma Pena on 04/13/20 5:[address] CM contacted [place], with [facility] Transfer Center ([phone], FX [phone]) regarding need of transfer for CV surgery. Provided required information and faxed a face sheet. Provided Dr. Constantino phone number. Last DP export: 04/13/20 5:38 p Patient Name: ANNE ENCARNACION Page [phone] at 1152 All edits/amendments must be made on the electronic document DICTATION DATE: 04/14/20 1152 ELIGIBILITY WORKER: JENNIFER 04/14/20 1152 RPT#: [id number] DC DATE:04/14/20 STATUS: DIS IN [facility] [address] [place] [address] END OF REPORT
--- NOTE | 2020-04-14 12:01 | MORECARE ---
CASE MANAGEMENT DISCHARGE SUMMARY PATIENT: ANNE ENCARNACION JR UNIT: [id number] ADM DATE: 04/13/20 AGE: 59 : 62 SEX: M ROOM/BED: D.5682 AUTHOR: LIZETT SAEED PHYSICIAN: REFERRING PHYSICIAN: TAVO CONSTANTINO MD DATE OF SERVICE: 04/14/20 Discharge Plan Patient Name: ANNE ENCARNACION Facility: [facility]:[place] : 1960 Planned Disposition: Other Type of Facility Anticipated Discharge Date: 04/14/20 Discharge Date: 04/14/2020 Expected LOS: 1 Initial Reviewer: [email or web address] Initial Review Date: 04/13/2020 Generated: 04/14/20 1:01 pm Comments DCP- Discharge Planning Updated by [email or web address]: Emma Pena on 04/14/20 10:[address] Patient transferred to [facility] ([phone]) tuckpointer. CM notified Juan C with [facility], in order to cancel the transfer. [facility] ([phone]) notified Christelle of need to cancel transfer process. DCP- Discharge Planning Updated by [id number]: Emma Pena on 04/14/20 10:[address] CM contacted [place], with [facility] Transfer Center ([phone], FX [phone]) regarding need of transfer for CV surgery. Provided required information and faxed a face sheet. Provided Dr. Constantino phone number. Contacted [facility] of Need for transfer. Last DP export: 04/14/20 10:52 a Patient Name: ANNE ENCARNACION Page 54919 at 1201 All edits/amendments must be made on the electronic document DICTATION DATE: 04/14/20 1201 CHIEF STEWARD/STEWARDESS: JENNIFER 04/14/20 1201 RPT#: [id number] DC DATE:04/14/20 STATUS: DIS IN [facility] [address] [place] [address] END OF REPORT
--- NOTE | 2020-04-14 12:16 | MORECARE ---
CASE MANAGEMENT DISCHARGE SUMMARY PATIENT: ANNE ENCARNACION JR UNIT: [id number] ADM DATE: 04/13/20 AGE: 59 : 62 SEX: M ROOM/BED: D.2122 AUTHOR: LIZETT SAEED PHYSICIAN: REFERRING PHYSICIAN: TAVO CONSTANTINO MD DATE OF SERVICE: 04/14/20 Discharge Plan Patient Name: ANNE ENCARNACION Facility: [facility]:[place] : 1960 Planned Disposition: Other Type of Facility Anticipated Discharge Date: 04/14/20 Discharge Date: 04/14/2020 Expected LOS: 1 Initial Reviewer: [email or web address] Initial Review Date: 04/13/2020 Generated: 04/14/20 1:16 pm Comments DCP- Discharge Planning Updated by [email or web address]: Emma Pena on 04/14/20 11:[address] CM contacted [place], with [facility] Transfer Center ([phone], FX [phone]) regarding need of transfer for CV surgery. Provided required information and faxed a face sheet. Provided Dr. Constantino phone number. Contacted [facility] of need for transfer, spoke with Rachelle. . DCP- Discharge Planning Updated by [email or web address]: Emma Pena on 04/14/20 10:[address] Patient transferred to [facility] ([phone]) cuff slitter. CM notified Juan C with [facility], in order to cancel the transfer. [facility] ([phone]) notified Christelle of need to cancel transfer process. Last DP export: 04/14/20 11:01 a Patient Name: ANNE ENCARNACION Page 58381 at 1216 All edits/amendments must be made on the electronic document DICTATION DATE: 04/14/20 1216 LOG INSPECTOR: JENNIFER 04/14/20 1216 RPT#: [id number] DC DATE:04/14/20 STATUS: DIS IN [facility] [id number] [place] [address] END OF REPORT
--- NOTE | 2020-04-15 08:19 | CN ---
PATIENT NAME:ANNE ENCARNACION JR MEDICAL RECORD: [id number] : 62 LOCATION:D. D.2122 ADMIT DATE: 04/13/20 ACCOUNT: [id number] CONSULTING PHYSICIAN: KAJAL CRABTREE MD REFERRING PHYSICIAN: TAVO VANESSA MD DATE OF CONSULTATION: 04/13/2020 HISTORY OF PRESENT ILLNESS: A 59-year-old gentleman with a known history of coronary artery disease, status post intervention via Dr. Ambriz, admitted with NSTEMI. Blood pressure has been trending up as of late had angina a day prior to admission. On date of admission, may have missed his blood pressure medicine, presented to the ER, was found to have elevated cardiac enzymes consistent with NSTEMI. We are asked to see him concerning his cardiovascular status. PAST MEDICAL HISTORY: Includes; 1. History of hypertension. 2. Hyperlipidemia. 3. Coronary artery disease as described above. ALLERGIES: IODINE, CUCUMBER, AND SHRIMP. MEDICATIONS: Include metoprolol 100 mg p.o. every day, fenofibrate 160 every day, aspirin every day. SOCIAL HISTORY: Nonsmoker, nondrinker. He takes care of all his ADLs. Works hub lead. REVIEW OF SYSTEMS: The patient reports easy bruising but reports no swollen glands. The patient reports no fever, no night sweats, no significant weight gain, no significant weight loss. No significant exercise tolerance. The patient reports no dry eyes, no irritation, no vision change. Patient reports no difficulty hearing and no ear pain. Patient reports no frequent nose bleeds or nose and sinus problems. Patient reports on arm pain on exertion. No shortness of breath while lying down. No history of heart murmur. Patient reports no cough, no wheezing or coughing up blood. Patient reports no abdominal pain, no vomiting. Normal appetite. No diarrhea and not vomiting blood. No nausea and no constipation. Patient reports no incontinence. No difficulty urinating. No hematuria. No increased frequency. Patient reports no muscle aches. No weakness, no arthralgias, no back pain. No swelling of the extremities. Patient reports no abnormal mole, no jaundice, no rashes. Reports no loss of consciousness. No weakness and no numbness. No seizures, dizziness, or headaches. The patient reports no depression, no sleep disturbance, feeling safe in a relationship and no alcohol abuse. Patient reports on fatigue. Reports no runny nose or sinus pressure. No itching, no hives, and no frequent sneezing. PHYSICAL EXAMINATION: GENERAL: Pleasant, in no acute distress, appears stated age. VITAL SIGNS: Blood pressure 159/102, pulse 69 and regular. HEENT: Normocephalic, atraumatic. NECK: No bruits are noted. HEART: Regular, S4 gallop is noted. LUNGS: Good air excursion. ABDOMEN: Soft, nontender. CONSULT REPORT [id number] ANNE ENCARNACION JR EXTREMITIES: Pulse 2+. No edema. DIAGNOSTIC DATA: EKG shows nonspecific ST-T changes inferolaterally. IMPRESSION: Non-ST segment elevation myocardial infarction, known history of coronary artery disease. PLAN: Plan for intervention. Further recommendations based on the above. TRANSINT:[id number] Voice Confirmation ID: [id number] DOCUMENT ID: [id number] KAJAL CRABTREE MD at 0819 CC: [id number] DICTATION DATE: 04/13/20 0832 COMBUSTION ANALYST: 04/13/20 1729 DIS IN 04/14/20 [facility] [address] [place] [address]
== END 2020-04-14 06:39 | disposition short-term general hospital (02) | DRG 281 ==
LOC: D.ER 20:24 → D.M2 23:20 → OBSVTIME 23:21 → D.M2 04-13 15:14
PROVIDERS: Family Medicine; Internal Medicine Cardiovascular Disease; ADMIT Family Medicine; ATTEND Family Medicine
PROC: B2111ZZ Fluoroscopy of Multiple Coronary Arteries using Low Osmolar Contrast (ICD-10-PCS; 2020-04-13)
PROC: B2151ZZ Fluoroscopy of Left Heart using Low Osmolar Contrast (ICD-10-PCS; 2020-04-13)
PROC: 4A023N7 Measurement of Cardiac Sampling and Pressure, Left Heart, Percutaneous Approach (ICD-10-PCS; 2020-04-13)
PROC: B2181ZZ Fluoroscopy of Left Internal Mammary Bypass Graft using Low Osmolar Contrast (ICD-10-PCS; principal; 2020-04-13 13:38)
DX: I21.4 Non-ST elevation (NSTEMI) myocardial infarction (principal); I50.20 Unspecified systolic (congestive) heart failure; I25.110 Atherosclerotic heart disease of native coronary artery with unstable angina pectoris; I11.0 Hypertensive heart disease with heart failure; E78.5 Hyperlipidemia, unspecified; E87.6 Hypokalemia; Z86.73 Personal history of transient ischemic attack (TIA), and cerebral infarction without residual deficits

== ENCOUNTER → 2020-05-12 12:55 | Outpatient (CLI) | payer MEDICAID ==
[2020-04-13 14:22] VITALS: BMI 26.5
[~2020-05-12 12:55] MED LIST changes: +LIPITOR20 MG PO; +[UNRECOGNIZED DRUG - MIXTURE]
== END | disposition home or self-care (01) ==
LOC: D.HCCECHO 12:55
PROVIDERS: ATTEND Internal Medicine Cardiovascular Disease
DX: I25.10 Atherosclerotic heart disease of native coronary artery without angina pectoris (principal)

== ENCOUNTER 2020-05-17 18:37 | Observation (INO) | payer MEDICAID ==
[~2020-05-17] VITALS: Ht 177.8 cm; Wt 86.4 kg
[2020-05-17 19:18] VITALS: BP 145/101
[2020-05-17 19:31] LABS: APTT 27.5 SECONDS (22.8-39.4); INR 1.02 (0.85-1.17); PROTIME 13.3 SECONDS (11.6-15.0)
[2020-05-17 19:39] LABS: BASOPHILS 0.8 % (0-2); EOSINOPHILS 12.1 % (0-7); HEMATOCRIT 37.8 % (42.0-54.0); HEMOGLOBIN 12.7 g/dL (13.5-17.5); IMMATURE GRANULOCYTES 0.6 % (0-5); LYMPHOCYTES 21.2 % (15-50); MCH 29.1 pg (26.0-34.0); MCHC 33.6 g/dL (31.0-37.0); MCV 86.5 fL (80.0-100.0); MEAN PLATELET VOLUME 10.8 fL (7.4-10.4); MONOCYTES 7.8 % (2-11); NEUTROPHILS 57.5 % (40-80); RBC 4.37 10x6/uL (4.20-6.10); RDW 13.2 % (11.5-14.5); WBC 7.7 10x3/uL (4.8-10.8)
[2020-05-17 19:43] LABS: CALC OSMOLALITY 274 mosm/kg (275-300); CALCIUM 8.8 mg/dL (8.5-10.1); CARBON DIOXIDE 27.8 mmol/L (21.0-32.0); CHLORIDE - SERUM 103 mmol/L (98-107); CREATININE - SERUM 1.1 mg/dL (0.6-1.3); GLUCOSE 123 mg/dL (74-106); PLATELET COUNT 309 10x3/uL (130-400); POTASSIUM - SERUM 3.5 mmol/L (3.5-5.1); SODIUM 136 mmol/L (136-145); UREA NITROGEN 17 mg/dL (7-18); eGFR NON AFRICAN AMERICAN 73 mL/min (90-120)
[2020-05-17 19:56] LABS: ALBUMIN 3.7 g/dL (3.4-5.0); ALKALINE PHOSPHATASE 95 U/L (30-120); ALT (SGPT) 35 U/L (10-68); BILIRUBIN - TOTAL 0.35 mg/dL (0.2-1.3); CKMB 1.2 U/L (0.0-3.6); CREATINE KINASE 80 UL (21-232); MAGNESIUM - SERUM 2.2 mg/dL (1.8-2.4); PROTEIN - SERUM 7.4 g/dL (6.4-8.2); TROPONIN-I 0.033 ng/mL (0.000-0.060)
[2020-05-17 21:28] VITALS: BP 142/94
[2020-05-17 22:08] LABS: CKMB 1.3 U/L (0.0-3.6); CREATINE KINASE 79 UL (21-232); TROPONIN-I 0.038 ng/mL (0.000-0.060)
[2020-05-17 22:33] VITALS: BP 141/103
[2020-05-18] VITALS (10 sets, daily range): BP systolic 130–159; BP diastolic 88–104
--- NOTE | 2020-05-18 01:00 | NUR ---
ASSUMED CARE OF PT AT THIS TIME, NO SIGNS DISTRESS NOTED. WILL CONTINUE TO MONITOR.
--- NOTE | 2020-05-18 02:10 | NUR ---
PT DENIES CURRENT NEEDS AT THIS TIME. DENIES CHEST PAIN AT THIS TIME. CALL LIGHT WITHIN REACH. WILL CONTINUE TO MONITOR.
--- NOTE | 2020-05-18 03:42 | NUR ---
PT SITTING UP IN BED, WATCHING TV. DENIES CURRENT NEEDS. REPORTS PAIN TO STITCHES, AND STATES THAT IT IS MILD AND THINKS IT IS D/T THE STITCHES AND NOT CARDIAC. PT OFFERED PRN PAIN MEDICATION, PT REPORTS "I DON'T WANT IT RIGHT NOW, THANK YOU." ADVISED ON HOW TO USE CALL LIGHT IF HE DOES HAVE CHEST PAIN OR HAS A REQUEST. PT VOICED UNDERSTANDING. NO SIGNS DISTRESS NOTED. RESPIRATIONS APPEAR EVEN AND NON LABORED. WILL CONTINUE TO MONITOR.
--- NOTE | 2020-05-18 05:35 | NUR ---
PT AMBULATED TO RESTROOM WITH STEADY GAIT NOTED
[2020-05-18] MEDS ORDERED: BRILINTA90 MG PO (05:43)
[2020-05-18] MEDS ORDERED: BAYER CHEWABLE81 MG PO (05:43)
[2020-05-18 07:39] LABS: BASOPHILS 0.7 % (0-2); EOSINOPHILS 12.4 % (0-7); HEMATOCRIT 39.2 % (42.0-54.0); HEMOGLOBIN 13.1 g/dL (13.5-17.5); IMMATURE GRANULOCYTES 0.3 % (0-5); LYMPHOCYTES 19.6 % (15-50); MCH 28.8 pg (26.0-34.0); MCHC 33.4 g/dL (31.0-37.0); MCV 86.2 fL (80.0-100.0); MEAN PLATELET VOLUME 10.3 fL (7.4-10.4); MONOCYTES 7.2 % (2-11); NEUTROPHILS 59.8 % (40-80); PLATELET COUNT 275 10x3/uL (130-400); RBC 4.55 10x6/uL (4.20-6.10); RDW 13.5 % (11.5-14.5)
[2020-05-18 08:19] LABS: ALBUMIN 3.8 g/dL (3.4-5.0); ALKALINE PHOSPHATASE 88 U/L (30-120); ALT (SGPT) 37 U/L (10-68); BILIRUBIN - TOTAL 0.38 mg/dL (0.2-1.3); CALC OSMOLALITY 278 mosm/kg (275-300); CALCIUM 9.2 mg/dL (8.5-10.1); CARBON DIOXIDE 28.7 mmol/L (21.0-32.0); CHLORIDE - SERUM 103 mmol/L (98-107); CKMB 1.3 U/L (0.0-3.6); CREATINE KINASE 67 UL (21-232); GLUCOSE 89 mg/dL (74-106); MAGNESIUM - SERUM 1.9 mg/dL (1.8-2.4); PHOSPHOROUS 4.3 mg/dL (2.5-4.9); PRO BNP 340 pg/mL (0-125); PROTEIN - SERUM 7.2 g/dL (6.4-8.2); SODIUM 140 mmol/L (136-145); UREA NITROGEN 16 mg/dL (7-18)
[2020-05-18 08:34] LABS: CREATININE - SERUM 0.8 mg/dL (0.6-1.3); POTASSIUM - SERUM 4.5 mmol/L (3.5-5.1); eGFR NON AFRICAN AMERICAN > 90 mL/min (90-120)
[2020-05-18 08:46] LABS: TROPONIN-I 0.062 ng/mL (0.000-0.060)
[2020-05-18 10:24] LABS: CKMB 1.5 U/L (0.0-3.6); CREATINE KINASE 67 UL (21-232); TROPONIN-I 0.059 ng/mL (0.000-0.060)
--- NOTE | 2020-05-18 19:27 | NUR ---
RECIEVED REPORT FROM WOODROW YOO, ER NURSE.
[2020-05-18] MEDS ORDERED: LIPITOR20 MG PO (19:48)
[2020-05-18] MEDS ORDERED: HYDROCHLOROTHIAZIDE PO (19:48)
[2020-05-18] MEDS ORDERED: CANDESARTAN PO (19:48)
[2020-05-18] MEDS ORDERED: TOPROL XL100 MG PO (19:48)
[2020-05-18] MEDS ORDERED: CELEBREX200 MG (19:51)
[2020-05-19 03:17] VITALS: Ht 177.8 cm; Wt 86.4 kg
[2020-05-19 07:08] LABS: BASOPHILS 0.6 % (0-2); HEMOGLOBIN 12.6 g/dL (13.5-17.5); IMMATURE GRANULOCYTES 0.3 % (0-5); LYMPHOCYTES 18.8 % (15-50); MCH 28.7 pg (26.0-34.0); MCHC 33.2 g/dL (31.0-37.0); MCV 86.6 fL (80.0-100.0); MONOCYTES 10.4 % (2-11); NEUTROPHILS 58.9 % (40-80); PLATELET COUNT 272 10x3/uL (130-400); RBC 4.39 10x6/uL (4.20-6.10); RDW 13.6 % (11.5-14.5); WBC 6.2 10x3/uL (4.8-10.8)
[2020-05-19 07:50] LABS: CALC OSMOLALITY 287 mosm/kg (275-300); CARBON DIOXIDE 27.9 mmol/L (21.0-32.0); CHLORIDE - SERUM 107 mmol/L (98-107); GLUCOSE 94 mg/dL (74-106); MAGNESIUM - SERUM 2.2 mg/dL (1.8-2.4); POTASSIUM - SERUM 4.4 mmol/L (3.5-5.1); SODIUM 143 mmol/L (136-145); eGFR NON AFRICAN AMERICAN 81 mL/min (90-120)
[2020-05-19 07:52] LABS: UREA NITROGEN 22 mg/dL (7-18)
[2020-05-19 08:22] VITALS: BP 147/103
[2020-05-19 12:23] VITALS: BP 157/114
--- NOTE | 2020-05-19 15:00 | NUR ---
PT DISCHARGED HOME VIA WHEELCHAIR WITH FAMILY. PIV REMOVED WITH CATHETER TIP FULLY INTACT. TELEMETRY REMOVED AND RETURNED. PT SIGNED PROPER DISCHARGE INSTRUCTIONS AND REMOVED ALL VALUABLES FROM THE ROOM.
== END 2020-05-19 15:01 | disposition home or self-care (01) ==
LOC: D.ER 18:37 → D.EDHOLD 21:11 → OBSVTIME 21:11 → D.EDHOLD 21:11 → D.M2 05-18 16:15
PROVIDERS: Family Medicine; ADMIT Family Medicine; ATTEND Family Medicine
DX: R07.9 Chest pain, unspecified (principal); Z95.1 Presence of aortocoronary bypass graft; D64.9 Anemia, unspecified; E78.5 Hyperlipidemia, unspecified; Z86.73 Personal history of transient ischemic attack (TIA), and cerebral infarction without residual deficits; I50.30 Unspecified diastolic (congestive) heart failure; I25.10 Atherosclerotic heart disease of native coronary artery without angina pectoris; I42.9 Cardiomyopathy, unspecified

== ENCOUNTER 2021-02-16 14:29 | Emergency (ER) | payer BC ==
[~2021-02-16] VITALS: Ht 177.8 cm; Wt 90.9 kg
[~2021-02-16 14:29] MED LIST changes: +BAYER CHEWABLE81 MG PO; +CANDESARTAN PO; +CELEBREX200 MG; +HYDROCHLOROTHIAZIDE PO
[2021-02-16 14:35] VITALS: Ht 177.8 cm; Wt 90.9 kg
[2021-02-16 15:34] LABS: BASOPHILS 0.6 % (0-2); HEMATOCRIT 44.6 % (42.0-54.0); HEMOGLOBIN 15.4 g/dL (13.5-17.5); LYMPHOCYTES 16.9 % (15-50); MCH 30.1 pg (26.0-34.0); MCHC 34.5 g/dL (31.0-37.0); MCV 87.1 fL (80.0-100.0); MEAN PLATELET VOLUME 9.1 fL (7.4-10.4); MONOCYTES 9.6 % (2-11); NEUTROPHILS 69.9 % (40-80); PLATELET COUNT 289 10x3/uL (130-400); RBC 5.12 10x6/uL (4.20-6.10); WBC 8.5 10x3/uL (4.8-10.8)
[2021-02-16 15:43] LABS: CALC OSMOLALITY 270 mosm/kg (275-300); CALCIUM 9.1 mg/dL (8.5-10.1); CARBON DIOXIDE 27.1 mmol/L (21.0-32.0); CHLORIDE - SERUM 97 mmol/L (98-107); CREATININE - SERUM 1.6 mg/dL (0.6-1.3); GLUCOSE 128 mg/dL (74-106); POTASSIUM - SERUM 4.6 mmol/L (3.5-5.1); SODIUM 133 mmol/L (136-145); UREA NITROGEN 22 mg/dL (7-18); eGFR NON AFRICAN AMERICAN 47 mL/min (90-120)
[2021-02-16 15:54] LABS: ALBUMIN 4.4 g/dL (3.4-5.0); ALKALINE PHOSPHATASE 107 U/L (30-120); ALT (SGPT) 67 U/L (10-68); BILIRUBIN - TOTAL 0.63 mg/dL (0.2-1.3); MAGNESIUM - SERUM 2.4 mg/dL (1.8-2.4); PROTEIN - SERUM 8.9 g/dL (6.4-8.2); TROPONIN-I < 0.017 ng/mL (0.000-0.060)
[2021-02-16 18:20] VITALS: BP 110/67
== END 2021-02-16 18:27 | disposition home or self-care (01) ==
LOC: D.ER 14:29
PROVIDERS: Family Medicine
DX: E86.0 Dehydration (principal); N17.9 Acute kidney failure, unspecified; I10 Essential (primary) hypertension; Z86.73 Personal history of transient ischemic attack (TIA), and cerebral infarction without residual deficits